=== PATIENT | female | born 1945 | race Caucasian/White ===

== ENCOUNTER → 2016-03-16 | Outpatient (CLI) | payer OTHER ==
[2016-03-16 10:42] LABS: Basophils # (auto) 0 uL; Basophils % (auto) 0.6 % (0.0-2.0); Eosinophils # (auto) 0.2 uL; Hematocrit 43.7 % (36.0-46.0); Hemoglobin 14.1 g/dL (12.2-16.2); Lymphocytes % (auto) 19.4 % (10.0-50.0); Mean Corpuscular Hemoglobin 27.1 pg (28.0-32.0); Mean Corpuscular Hgb Conc. 32.2 g/dL (32.0-36.0); Mean Corpuscular Volume 84.1 fL (80.0-100.0); Monocytes # (auto) 0.4 uL; Monocytes % (auto) 8.3 % (0.0-12.0); Neutrophils # (auto) 3.5 uL; Neutrophils % (auto) 67.7 % (37.0-80.0); Platelet Count (auto) 156 10^3/uL (140-450); Red Cell Distribution Width 14.8 % (11.6-16.0); White Blood Cell 5.1 10^3/uL (4.4-10.8)
[2016-03-16 10:56] LABS: Urine Bilirubin Negative (Negative); Urine Blood Negative /uL (Negative); Urine Color Yellow (Yellow); Urine Glucose Normal (Normal); Urine Ketone Negative (Negative); Urine Mucus FEW (None Seen); Urine Nitrite Negative (Negative); Urine RBC 1 /hpf (0 - 4); Urine Squamous Epithelial Cell FEW /hpf (<5); Urine Urobilinogen Normal (Negative); Urine pH 5.5 (5.0-8.0)
[2016-03-16 11:08] LABS: Albumin 3.9 g/dL (3.4-5.0); Bilirubin, Total 0.5 mg/dL (0.2-1.0); Calcium 9.3 mg/dL (8.5-10.1); Potassium 3.7 mmol/L (3.5-5.1)
== END | disposition home or self-care (01) ==
LOC: LAB 09:28
PROVIDERS: ATTEND Internal Medicine
DX: E55.9 Vitamin D deficiency, unspecified (principal); Z00.00 Encounter for general adult medical examination without abnormal findings
CPT/HCPCS: 36415; 80053; 80061; 81001; 82306; 84443; 85025

== ENCOUNTER → 2016-05-05 | Outpatient (CLI) | payer OTHER ==
[2016-05-05 11:17] LABS: Urine Bilirubin Negative (Negative); Urine Blood Negative /uL (Negative); Urine Color Yellow (Yellow); Urine Glucose Normal (Normal); Urine Ketone Negative (Negative); Urine Mucus FEW (None Seen); Urine Nitrite Negative (Negative); Urine RBC 2 /hpf (0 - 4); Urine Squamous Epithelial Cell FEW /hpf (<5)
== END | disposition home or self-care (01) ==
LOC: LAB 10:39
PROVIDERS: ATTEND Internal Medicine
DX: N39.0 Urinary tract infection, site not specified (principal)
CPT/HCPCS: 81001

== ENCOUNTER → 2017-02-14 | Outpatient (CLI) | payer OTHER ==
[~2017-02-14] MED LIST: AMPH10TA21 PO; BUSP15TA60 PO; LEVO88TA4 PO; PANT40TA2 PO; SERT-160 PO
[2017-02-14 10:19] LABS: Urine Bilirubin Negative (Negative); Urine Blood Negative /uL (Negative); Urine Color Yellow (Yellow); Urine Glucose Normal (Normal); Urine Ketone Negative (Negative); Urine Mucus FEW (None Seen); Urine Nitrite Negative (Negative); Urine RBC <1 /hpf (0 - 4); Urine Squamous Epithelial Cell FEW /hpf (<5); Urine Urobilinogen Normal (Negative); Urine pH 5.5 (5.0-8.0)
[2017-02-14 10:47] LABS: Basophils # (auto) 0 uL; Basophils % (auto) 1.1 % (0.0-2.0); Eosinophils # (auto) 0.2 uL; Eosinophils % (auto) 4.4 % (0.0-7.0); Hematocrit 39.7 % (36.0-46.0); Hemoglobin 13.4 g/dL (12.2-16.2); Lymphocytes % (auto) 23.8 % (10.0-50.0); Mean Corpuscular Hemoglobin 28.1 pg (28.0-32.0); Mean Corpuscular Hgb Conc. 33.8 g/dL (32.0-36.0); Mean Corpuscular Volume 83.1 fL (80.0-100.0); Mean Platelet Volume 8.5 fL (6.9-10.8); Monocytes # (auto) 0.3 uL; Monocytes % (auto) 8.6 % (0.0-12.0); Neutrophils # (auto) 2.5 uL; Neutrophils % (auto) 62.1 % (37.0-80.0); Nucleated Red Blood Cells % 0.1 %; Platelet Count (auto) 119 10^3/uL (140-450); Red Cell Distribution Width 14.8 % (11.8-14.3); White Blood Cell 4.1 10^3/uL (4.4-10.8)
[2017-02-14 10:50] LABS: Albumin 3.8 g/dL (3.4-5.0); BUN/Creatinine Ratio 33.9; Bilirubin, Total 0.4 mg/dL (0.2-1.0); Calcium 9.1 mg/dL (8.5-10.1); Potassium 3.8 mmol/L (3.5-5.1); Total Protein 7.8 g/dL (6.4-8.2)
== END | disposition home or self-care (01) ==
LOC: LAB 09:28
PROVIDERS: ATTEND Nurse Practitioner
DX: K52.9 Noninfective gastroenteritis and colitis, unspecified (principal); R79.89 Other specified abnormal findings of blood chemistry
CPT/HCPCS: 36415; 80053; 80061; 81001; 82306; 83036; 85025

== ENCOUNTER 2017-02-16 06:27 | Day surgery (SDC) | payer OTHER ==
[2017-02-14 10:13] LABS: Basophils # (auto) 0 uL; Basophils % (auto) 1.1 % (0.0-2.0); Eosinophils # (auto) 0.2 uL; Eosinophils % (auto) 4.6 % (0.0-7.0); Hematocrit 40.8 % (36.0-46.0); Hemoglobin 13.6 g/dL (12.2-16.2); Mean Corpuscular Hemoglobin 27.6 pg (28.0-32.0); Mean Corpuscular Hgb Conc. 33.2 g/dL (32.0-36.0); Mean Corpuscular Volume 83.1 fL (80.0-100.0); Mean Platelet Volume 8.2 fL (6.9-10.8); Monocytes # (auto) 0.3 uL; Neutrophils # (auto) 2.5 uL; Neutrophils % (auto) 62.3 % (37.0-80.0); Platelet Count (auto) 121 10^3/uL (140-450); Red Cell Distribution Width 14.6 % (11.8-14.3); White Blood Cell 4.1 10^3/uL (4.4-10.8)
[2017-02-14 10:19] LABS: Urine Bilirubin Negative (Negative); Urine Blood Negative /uL (Negative); Urine Color Yellow (Yellow); Urine Glucose Normal (Normal); Urine Ketone Negative (Negative); Urine Mucus FEW (None Seen); Urine Nitrite Negative (Negative); Urine RBC <1 /hpf (0 - 4); Urine Urobilinogen Normal (Negative); Urine pH 5.5 (5.0-8.0)
[2017-02-14 10:38] LABS: INR 0.93 (0.9-1.15); Partial Thromboplastin Time 24.5 sec (22.64-33.71); Prothrombin Time 10.1 sec (9.37-12.3)
[2017-02-14 10:45] LABS: Albumin 3.7 g/dL (3.4-5.0); BUN/Creatinine Ratio 33.3; Bilirubin, Total 0.4 mg/dL (0.2-1.0); Potassium 3.8 mmol/L (3.5-5.1); Total Protein 7.8 g/dL (6.4-8.2)
[~2017-02-16] VITALS: Ht 165.1 cm; Wt 87.5 kg
[2017-02-16] MEDS ORDERED: ceFAZolin 1GM/50ML 50 ML IV ONE (06:39)
[2017-02-16] MEDS ORDERED: ceFAZolin 1GM VL ONE (06:47)
[2017-02-16] MEDS ORDERED: NEOMYCIN-BACITRACIN-POLYM 15GM TOP OINT TOP ONE (06:47)
[2017-02-16] MEDS ORDERED: BUPIVACAINE 0.75% INJ 10ML MPV SDV IJ ONE (06:47)
[2017-02-16] MEDS ORDERED: fentaNYL CITRATE 100 MCG/2 ML VL ONE (07:34)
[2017-02-16] MEDS ORDERED: MEPERIDINE HCL (50 MG/ML) 1 ML VIAL ONE (07:34)
[2017-02-16] MEDS ORDERED: MIDAZOLAM HCL 1MG/1ML-2 ML VIAL ONE (07:34)
[2017-02-16] MEDS ORDERED: DEXAMETHASONE SOD PHOS 10MG/1ML VIAL INJ ONE (07:50)
[2017-02-16] MEDS ORDERED: KETOROLAC TROMETH 30 MG/ML 1ML VIAL ONE (07:50)
[2017-02-16] MEDS ORDERED: PROPOFOL 10 MG/ML 20 ML IV ONE (07:50)
[2017-02-16] MEDS ORDERED: LABETALOL HCL 5 MG/ML 4ML SYRINGE IV PRN (08:00)
[2017-02-16] MEDS ORDERED: HYDROmorphone HCL 2 MG/ML VL IV PRN (08:00)
[2017-02-16] MEDS ORDERED: MIDAZOLAM HCL 1MG/1ML-2 ML VIAL IV PRN (08:00)
[2017-02-16] MEDS ORDERED: MORPHINE SULF INJ 2 MG/ML SYRINGE 1ML IV PRN (08:00)
[2017-02-16] MEDS ORDERED: KETOROLAC TROMETH 30 MG/ML 1ML VIAL IV ONE (08:00)
[2017-02-16] MEDS ORDERED: ONDANSETRON HCL 4 MG/2 ML VIAL IV ONE (08:00)
[2017-02-16] MEDS ORDERED: ePHEDrine SULFATE 50 MG/ML AMP IV PRN (08:00)
[2017-02-16 09:44] VITALS: BP 137/92
== END 2017-02-16 09:14 | disposition home or self-care (01) ==
LOC: SUR 06:27
PROVIDERS: ATTEND Podiatrist Foot & Ankle Surgery
DX: M21.622 Bunionette of left foot (principal); M24.675 Ankylosis, left foot; D69.6 Thrombocytopenia, unspecified; E66.9 Obesity, unspecified; Z90.49 Acquired absence of other specified parts of digestive tract; Z90.710 Acquired absence of both cervix and uterus; K21.9 Gastro-esophageal reflux disease without esophagitis; E03.9 Hypothyroidism, unspecified; Z68.34 Body mass index [BMI] 34.0-34.9, adult; I25.10 Atherosclerotic heart disease of native coronary artery without angina pectoris; F32.9 Major depressive disorder, single episode, unspecified
CPT/HCPCS: 14040; 28110; 36415; 80053; 81001; 85025; 85610; 85730; J0690; J1100; J1885; J2175; J2250; J2704; J3010; J3490; L3260

== ENCOUNTER → 2017-06-22 | Outpatient (CLI) | payer OTHER ==
[2017-06-22 09:05] LABS: Basophils # (auto) 0 uL; Basophils % (auto) 1.1 % (0.0-2.0); Eosinophils # (auto) 0.3 uL; Eosinophils % (auto) 6.8 % (0.0-7.0); Hematocrit 40.7 % (36.0-46.0); Hemoglobin 13.5 g/dL (12.2-16.2); Lymphocytes # (auto) 0.9 uL; Lymphocytes % (auto) 23.9 % (10.0-50.0); Mean Corpuscular Hemoglobin 27.5 pg (28.0-32.0); Mean Corpuscular Hgb Conc. 33.2 g/dL (32.0-36.0); Mean Corpuscular Volume 82.6 fL (80.0-100.0); Monocytes # (auto) 0.3 uL; Monocytes % (auto) 7.4 % (0.0-12.0); Neutrophils # (auto) 2.3 uL; Neutrophils % (auto) 60.8 % (37.0-80.0); Platelet Count (auto) 129 10^3/uL (140-450); Red Blood Cells 4.92 10^6/uL (4.0-5.20); Red Cell Distribution Width 14.3 % (11.8-14.3); White Blood Cell 3.8 10^3/uL (4.4-10.8)
[2017-06-22 09:20] LABS: Urine Blood Negative /uL (Negative); Urine Mucus FEW (None Seen); Urine WBC <1 /hpf (0 - 5)
[2017-06-22 09:24] LABS: Urine Bacteria None Seen /hpf (None Seen)
[2017-06-22 09:41] LABS: Albumin 3.6 g/dL (3.4-5.0); BUN/Creatinine Ratio 23.6; Bilirubin, Total 0.6 mg/dL (0.2-1.0); Potassium 4.1 mmol/L (3.5-5.1); Total Protein 7.6 g/dL (6.4-8.2)
== END | disposition home or self-care (01) ==
LOC: LAB 08:42
PROVIDERS: ATTEND Nurse Practitioner
DX: E78.5 Hyperlipidemia, unspecified (principal)
CPT/HCPCS: 36415; 80053; 80061; 81001; 83036; 84443; 85025

== ENCOUNTER → 2017-11-24 | Outpatient (CLI) | payer OTHER ==
[2017-11-24 10:15] LABS: Basophils # (auto) 0 uL; Basophils % (auto) 1.2 % (0.0-2.0); Eosinophils # (auto) 0.2 uL; Eosinophils % (auto) 5.7 % (0.0-7.0); Hematocrit 41.2 % (36.0-46.0); Hemoglobin 14.1 g/dL (12.2-16.2); Lymphocytes # (auto) 0.8 uL; Lymphocytes % (auto) 20.8 % (10.0-50.0); Mean Corpuscular Hemoglobin 27.9 pg (28.0-32.0); Mean Corpuscular Hgb Conc. 34.2 g/dL (32.0-36.0); Mean Corpuscular Volume 81.8 fL (80.0-100.0); Monocytes # (auto) 0.3 uL; Monocytes % (auto) 7.7 % (0.0-12.0); Neutrophils # (auto) 2.6 uL; Neutrophils % (auto) 64.6 % (37.0-80.0); Nucleated Red Blood Cells % 0.1 %; Platelet Count (auto) 104 10^3/uL (140-450); Red Blood Cells 5.03 10^6/uL (4.0-5.20); Red Cell Distribution Width 15.2 % (11.8-14.3)
[2017-11-24 11:19] LABS: Albumin 3.7 g/dL (3.4-5.0); BUN/Creatinine Ratio 29.4; Bilirubin, Total 0.5 mg/dL (0.2-1.0); Calcium 8.9 mg/dL (8.5-10.1); Total Protein 7.7 g/dL (6.4-8.2)
== END | disposition home or self-care (01) ==
LOC: LAB 09:31
PROVIDERS: ATTEND Nurse Practitioner
DX: E78.5 Hyperlipidemia, unspecified (principal)
CPT/HCPCS: 36415; 80053; 80061; 83036; 85025

== ENCOUNTER → 2018-02-10 | Outpatient (CLI) | payer OTHER ==
[2018-02-10 09:48] LABS: Basophils # (auto) 0.1 uL; Basophils % (auto) 1.4 % (0.0-2.0); Eosinophils # (auto) 0.2 uL; Eosinophils % (auto) 4.2 % (0.0-7.0); Hematocrit 39.1 % (36.0-46.0); Hemoglobin 13.3 g/dL (12.2-16.2); Lymphocytes # (auto) 0.8 uL; Lymphocytes % (auto) 20.3 % (10.0-50.0); Mean Corpuscular Hgb Conc. 34.1 g/dL (32.0-36.0); Mean Corpuscular Volume 82.1 fL (80.0-100.0); Monocytes # (auto) 0.3 uL; Monocytes % (auto) 7.8 % (0.0-12.0); Neutrophils # (auto) 2.5 uL; Neutrophils % (auto) 66.3 % (37.0-80.0); Nucleated Red Blood Cells % 0.1 %; Platelet Count (auto) 119 10^3/uL (140-450); Red Blood Cells 4.77 10^6/uL (4.0-5.20); Red Cell Distribution Width 14.2 % (11.8-14.3); White Blood Cell 3.7 10^3/uL (4.4-10.8)
[2018-02-10 10:51] LABS: Albumin 3.6 g/dL (3.4-5.0); Calcium 8.9 mg/dL (8.5-10.1); Potassium 3.8 mmol/L (3.5-5.1)
[2018-02-10 10:56] LABS: BUN/Creatinine Ratio 30.4; Bilirubin, Total 0.6 mg/dL (0.2-1.0); Total Protein 7.2 g/dL (6.4-8.2)
== END | disposition home or self-care (01) ==
LOC: LAB 09:24
PROVIDERS: ATTEND Nurse Practitioner
DX: E78.5 Hyperlipidemia, unspecified (principal)
CPT/HCPCS: 36415; 80053; 80061; 85025

== ENCOUNTER → 2018-07-06 | Outpatient (CLI) | payer OTHER | END | disposition home or self-care (01) | LOC: LAB 14:26 | PROVIDERS: ATTEND Nurse Practitioner | DX: Z12.11 Encounter for screening for malignant neoplasm of colon (principal) | CPT/HCPCS: 82270 ==

== ENCOUNTER → 2018-08-10 | Outpatient (CLI) | payer OTHER ==
[2018-08-10 10:03] LABS: Urine Bacteria NONE SEEN /hpf (None Seen); Urine Blood Negative /uL (Negative); Urine Mucus FEW (None Seen); Urine Specific Gravity 1.025 (1.001-1.035); Urine WBC 3 /hpf (0 - 5)
[2018-08-10 10:12] LABS: Basophils # (auto) 0.1 uL; Basophils % (auto) 1.4 % (0.0-2.0); Eosinophils # (auto) 0.5 uL; Eosinophils % (auto) 13.5 % (0.0-7.0); Hematocrit 39.2 % (36.0-46.0); Lymphocytes # (auto) 0.9 uL; Lymphocytes % (auto) 23.9 % (10.0-50.0); Mean Corpuscular Hemoglobin 27.9 pg (28.0-32.0); Mean Corpuscular Hgb Conc. 33.2 g/dL (32.0-36.0); Monocytes # (auto) 0.3 uL; Monocytes % (auto) 8.2 % (0.0-12.0); Neutrophils # (auto) 2.1 uL; Nucleated Red Blood Cells % 0.1 %; Platelet Count (auto) 111 10^3/uL (140-450); Red Blood Cells 4.67 10^6/uL (4.0-5.20); Red Cell Distribution Width 14.8 % (11.8-14.3); White Blood Cell 3.9 10^3/uL (4.4-10.8)
[2018-08-10 10:40] LABS: Albumin 3.6 g/dL (3.4-5.0); BUN/Creatinine Ratio 30.9; Bilirubin, Total 0.5 mg/dL (0.2-1.0); Calcium 8.6 mg/dL (8.5-10.1); Total Protein 7.6 g/dL (6.4-8.2); Uric Acid 3.5 mg/dL (2.6-6.0)
[2018-08-10 10:48] LABS: Folate (Folic Acid) 14.35 ng/mL (5.38-24)
== END | disposition home or self-care (01) ==
LOC: LAB 09:27
PROVIDERS: ATTEND Nurse Practitioner
DX: E78.5 Hyperlipidemia, unspecified (principal)
CPT/HCPCS: 36415; 80053; 80061; 81001; 82306; 82607; 82746; 83036; 84443; 84550; 85025

== ENCOUNTER → 2019-03-21 | Outpatient (CLI) | payer OTHER ==
[~2019-03-21] MED LIST changes: +AMPH10TA2 PO; -AMPH10TA21 PO
[2019-03-21 12:04] LABS: Basophils # (auto) 0 uL; Basophils % (auto) 1.3 % (0.0-2.0); Eosinophils # (auto) 0.1 uL; Eosinophils % (auto) 4.3 % (0.0-7.0); Hematocrit 37.7 % (36.0-46.0); Hemoglobin 12.8 g/dL (12.2-16.2); Lymphocytes # (auto) 0.6 uL; Lymphocytes % (auto) 19.6 % (10.0-50.0); Mean Corpuscular Hemoglobin 28.6 pg (28.0-32.0); Mean Corpuscular Hgb Conc. 33.9 g/dL (32.0-36.0); Mean Corpuscular Volume 84.2 fL (80.0-100.0); Monocytes # (auto) 0.2 uL; Monocytes % (auto) 5.7 % (0.0-12.0); Neutrophils # (auto) 2.3 uL; Neutrophils % (auto) 69.1 % (37.0-80.0); Nucleated Red Blood Cells % 0.1 %; Platelet Count (auto) 109 10^3/uL (140-450); Red Blood Cells 4.48 10^6/uL (4.0-5.20); White Blood Cell 3.3 10^3/uL (4.4-10.8)
[2019-03-21 12:19] LABS: Potassium 3.7 mmol/L (3.5-5.1)
[2019-03-21 12:22] LABS: Urine Bacteria NONE SEEN /hpf (None Seen); Urine Blood Negative /uL (Negative); Urine Mucus FEW (None Seen); Urine Specific Gravity 1.023 (1.001-1.035); Urine WBC 1 /hpf (0 - 5)
[2019-03-21 12:26] LABS: Albumin 3.4 g/dL (3.4-5.0); BUN/Creatinine Ratio 22.6; Bilirubin, Total 0.4 mg/dL (0.2-1.0); Calcium 8.8 mg/dL (8.5-10.1); Total Protein 7.4 g/dL (6.4-8.2)
== END | disposition home or self-care (01) ==
LOC: LAB 11:27
PROVIDERS: ATTEND Nurse Practitioner
DX: E78.5 Hyperlipidemia, unspecified (principal)
CPT/HCPCS: 36415; 80053; 80061; 81001; 83036; 84443; 85025

== ENCOUNTER → 2019-11-21 | Outpatient (CLI) | payer OTHER ==
[2019-11-21 13:01] LABS: Basophils # (auto) 0.1 10 ^3/uL (0-0.2); Basophils % (auto) 1.2 % (0.0-2.0); Eosinophils # (auto) 0.2 10 ^3/uL (0-0.8); Eosinophils % (auto) 4.2 % (0.0-7.0); Hematocrit 34.9 % (36.0-46.0); Hemoglobin 11.1 g/dL (12.2-16.2); Lymphocytes # (auto) 0.8 10 ^3/uL (0.4-5.4); Mean Corpuscular Hemoglobin 25.3 pg (28.0-32.0); Mean Corpuscular Hgb Conc. 31.8 g/dL (32.0-36.0); Mean Corpuscular Volume 79.6 fL (80.0-100.0); Monocytes # (auto) 0.4 10 ^3/uL (0-1.3); Monocytes % (auto) 8.4 % (0.0-12.0); Neutrophils # (auto) 2.9 10 ^3/uL (1.6-8.6); Neutrophils % (auto) 67.2 % (37.0-80.0); Nucleated Red Blood Cells % 0.1 %; Platelet Count (auto) 130 10^3/uL (140-450); Red Blood Cells 4.39 10^6/uL (4.0-5.20); Red Cell Distribution Width 14.9 % (11.8-14.3); White Blood Cell 4.3 10^3/uL (4.4-10.8)
== END | disposition home or self-care (01) ==
LOC: LAB 12:25
PROVIDERS: ATTEND Internal Medicine Pulmonary Disease
DX: R06.02 Shortness of breath (principal)
CPT/HCPCS: 36415; 82785; 85025

== ENCOUNTER → 2019-12-26 | Outpatient (CLI) | payer OTHER ==
[2019-12-26 14:33] LABS: Basophils # (auto) 0 10 ^3/uL (0-0.2); Eosinophils # (auto) 0.3 10 ^3/uL (0-0.8); Lymphocytes # (auto) 0.7 10 ^3/uL (0.4-5.4); Monocytes # (auto) 0.3 10 ^3/uL (0-1.3); White Blood Cell 4.3 10^3/uL (4.4-10.8)
[2019-12-26 14:35] LABS: Basophils % (auto) 0.9 % (0.0-2.0); Eosinophils % (auto) 6.7 % (0.0-7.0); Hematocrit 33.1 % (36.0-46.0); Hemoglobin 10.8 g/dL (12.2-16.2); Lymphocytes % (auto) 15.5 % (10.0-50.0); Mean Corpuscular Hemoglobin 25.5 pg (28.0-32.0); Mean Corpuscular Hgb Conc. 32.7 g/dL (32.0-36.0); Mean Corpuscular Volume 78.1 fL (80.0-100.0); Monocytes % (auto) 6.7 % (0.0-12.0); Neutrophils % (auto) 70.2 % (37.0-80.0); Nucleated Red Blood Cells % 0.1 %; Platelet Count (auto) 139 10^3/uL (140-450); Red Blood Cells 4.24 10^6/uL (4.0-5.20); Red Cell Distribution Width 14.6 % (11.8-14.3)
[2019-12-26 15:02] LABS: Albumin 3.6 g/dL (3.4-5.0); Calcium 8.8 mg/dL (8.5-10.1); Potassium 3.9 mmol/L (3.5-5.1)
[2019-12-26 15:05] LABS: BUN/Creatinine Ratio 28.9; Bilirubin, Total 0.3 mg/dL (0.2-1.0); Total Protein 7.5 g/dL (6.4-8.2)
== END | disposition home or self-care (01) ==
LOC: LAB 14:08
PROVIDERS: ATTEND Student in an Organized Health Care Education/Training Program
DX: I10 Essential (primary) hypertension (principal); K21.9 Gastro-esophageal reflux disease without esophagitis; E03.9 Hypothyroidism, unspecified
CPT/HCPCS: 36415; 80053; 84443; 85025

== ENCOUNTER → 2020-01-16 | Outpatient (CLI) | payer OTHER | END | disposition home or self-care (01) | LOC: LAB 13:23 | PROVIDERS: ATTEND Student in an Organized Health Care Education/Training Program | DX: K21.9 Gastro-esophageal reflux disease without esophagitis (principal); I10 Essential (primary) hypertension; E03.9 Hypothyroidism, unspecified | CPT/HCPCS: 82274 ==

== ENCOUNTER → 2020-03-24 | Outpatient (CLI) | payer OTHER ==
[~2020-03-24] MED LIST changes: +BACL10TA PO; +BACL20TA PO; +DICL1GEL72 EX; +DICL50TA4 PO; +HYDR-3682 PO
== END | disposition home or self-care (01) ==
LOC: LAB 10:45
PROVIDERS: ATTEND Student in an Organized Health Care Education/Training Program
DX: E03.9 Hypothyroidism, unspecified (principal); R73.03 Prediabetes
CPT/HCPCS: 36415; 83036; 84439; 84443

== ENCOUNTER → 2020-06-16 | Outpatient (CLI) | payer OTHER ==
[~2020-06-16] MED LIST changes: -BACL10TA PO; -BACL20TA PO; -DICL1GEL72 EX; -DICL50TA4 PO; -HYDR-3682 PO
[2020-06-16 13:24] LABS: Urine Bacteria NONE SEEN /hpf (None Seen); Urine Blood Negative /uL (Negative); Urine Specific Gravity 1.022 (1.001-1.035); Urine WBC <1 /hpf (0 - 5)
[2020-06-16 13:26] LABS: Basophils # (auto) 0.1 10 ^3/uL (0-0.2); Eosinophils # (auto) 0.3 10 ^3/uL (0-0.8); Lymphocytes # (auto) 0.8 10 ^3/uL (0.4-5.4); Mean Corpuscular Hemoglobin 20.5 pg (28.0-32.0); Monocytes # (auto) 0.4 10 ^3/uL (0-1.3); Neutrophils # (auto) 3.1 10 ^3/uL (1.6-8.6); Platelet Count (auto) 121 10^3/uL (140-450); White Blood Cell 4.7 10^3/uL (4.4-10.8)
[2020-06-16 13:28] LABS: Basophils % (auto) 1.4 % (0.0-2.0); Eosinophils % (auto) 6.8 % (0.0-7.0); Hematocrit 27.8 % (36.0-46.0); Hemoglobin 8.8 g/dL (12.2-16.2); Lymphocytes % (auto) 17.5 % (10.0-50.0); Mean Corpuscular Hgb Conc. 31.6 g/dL (32.0-36.0); Monocytes % (auto) 8.5 % (0.0-12.0); Neutrophils % (auto) 65.8 % (37.0-80.0); Red Blood Cells 4.28 10^6/uL (4.0-5.20); Red Cell Distribution Width 18.5 % (11.8-14.3)
[2020-06-16 13:45] LABS: INR 1.01 (0.9-1.15); Partial Thromboplastin Time 24.4 sec (23.0-31.2)
[2020-06-16 14:17] LABS: Albumin 3.6 g/dL (3.4-5.0); Potassium 3.9 mmol/L (3.5-5.1)
[2020-06-16 14:23] LABS: Bilirubin, Total 0.3 mg/dL (0.2-1.0); Total Protein 7.8 g/dL (6.4-8.2)
== END | disposition home or self-care (01) ==
LOC: LAB 12:52
PROVIDERS: ATTEND Nurse Practitioner
DX: Z01.818 Encounter for other preprocedural examination (principal)
CPT/HCPCS: 36415; 80053; 81001; 85025; 85610; 85730

== ENCOUNTER 2020-08-12 08:24 | Day surgery (SDC) | payer OTHER ==
[2020-08-08 14:04] LABS: Basophils # (auto) 0.1 10 ^3/uL (0-0.2); Eosinophils # (auto) 0.3 10 ^3/uL (0-0.8); Hemoglobin 8.2 g/dL (12.2-16.2); Lymphocytes # (auto) 0.9 10 ^3/uL (0.4-5.4); Neutrophils # (auto) 2.9 10 ^3/uL (1.6-8.6); Nucleated Red Blood Cells % 0.1 %; White Blood Cell 4.6 10^3/uL (4.4-10.8)
[2020-08-08 14:06] LABS: Basophils % (auto) 1.5 % (0.0-2.0); Eosinophils % (auto) 6.2 % (0.0-7.0); Hematocrit 25.6 % (36.0-46.0); Lymphocytes % (auto) 19.5 % (10.0-50.0); Mean Corpuscular Hemoglobin 19.8 pg (28.0-32.0); Mean Corpuscular Hgb Conc. 31.9 g/dL (32.0-36.0); Mean Corpuscular Volume 62.1 fL (80.0-100.0); Monocytes # (auto) 0.4 10 ^3/uL (0-1.3); Monocytes % (auto) 9.6 % (0.0-12.0); Neutrophils % (auto) 63.2 % (37.0-80.0); Platelet Count (auto) 126 10^3/uL (140-450); Red Blood Cells 4.12 10^6/uL (4.0-5.20); Red Cell Distribution Width 17.9 % (11.8-14.3)
[2020-08-08 14:17] LABS: INR 1.01 (0.9-1.15); Partial Thromboplastin Time 23.6 sec (23.0-31.2)
[2020-08-08 14:38] LABS: Potassium 4.1 mmol/L (3.5-5.1)
[2020-08-08 14:45] LABS: Albumin 3.5 g/dL (3.4-5.0); BUN/Creatinine Ratio 26.9; Bilirubin, Total 0.3 mg/dL (0.2-1.0); Calcium 8.8 mg/dL (8.5-10.1)
[~2020-08-12] VITALS: Ht 167.6 cm; Wt 91.6 kg
[~2020-08-12 08:24] MED LIST changes: -AMPH10TA2 PO
[2020-08-12] MEDS ORDERED: SODIUM CHLORIDE LOCK 10 ML ONE (08:39)
[2020-08-12] MEDS ORDERED: LIDOCAINE VISCOUS 2% 15ML UD ONE (08:39)
[2020-08-12] MEDS ORDERED: EPINEPHrine HCL 1 MG/10 ML SYRG ONE (08:39)
[2020-08-12] MEDS ORDERED: diphenhdrAMINE HCL 50 MG/1 ML VL ONE (08:40)
[2020-08-12] MEDS: fentaNYL CITRATE 100 MCG/2 ML VL ONE ×4 (10:27→10:47)
[2020-08-12] MEDS: MIDAZOLAM HCL 5 MG/ML-1ML VIAL ONE ×4 (10:27→10:44)
[2020-08-12 11:30] VITALS: BP 122/59
== END 2020-08-12 12:10 | disposition home or self-care (01) ==
LOC: GI 08:24
PROVIDERS: ATTEND Internal Medicine Gastroenterology
DX: K62.5 Hemorrhage of anus and rectum (principal); K31.9 Disease of stomach and duodenum, unspecified; R68.89 Other general symptoms and signs; K44.9 Diaphragmatic hernia without obstruction or gangrene; K21.9 Gastro-esophageal reflux disease without esophagitis; F98.8 Other specified behavioral and emotional disorders with onset usually occurring in childhood and adolescence; D64.9 Anemia, unspecified; H26.8 Other specified cataract; K63.5 Polyp of colon; K63.89 Other specified diseases of intestine; Z20.822 Contact with and (suspected) exposure to COVID-19; Z79.899 Other long term (current) drug therapy; Z98.890 Other specified postprocedural states; Z68.32 Body mass index [BMI] 32.0-32.9, adult; Z80.0 Family history of malignant neoplasm of digestive organs
CPT/HCPCS: 36415; 43239; 45385; 80053; 85025; 85610; 85730; J1200; J2250; J3010; J7030; U0003; 99152; 99153

== ENCOUNTER → 2020-10-06 | Outpatient (CLI) | payer OTHER ==
[2020-10-06 10:59] LABS: Basophils # (auto) 0.1 10 ^3/uL (0-0.2); Eosinophils # (auto) 0.2 10 ^3/uL (0-0.8); Lymphocytes # (auto) 0.7 10 ^3/uL (0.4-5.4); Monocytes # (auto) 0.3 10 ^3/uL (0-1.3); Neutrophils # (auto) 2.4 10 ^3/uL (1.6-8.6); Red Blood Cells 4.01 10^6/uL (4.0-5.20); White Blood Cell 3.7 10^3/uL (4.4-10.8)
[2020-10-06 11:01] LABS: Basophils % (auto) 1.8 % (0.0-2.0); Eosinophils % (auto) 5.9 % (0.0-7.0); Hematocrit 24.5 % (36.0-46.0); Hemoglobin 7.3 g/dL (12.2-16.2); Lymphocytes % (auto) 20.1 % (10.0-50.0); Mean Corpuscular Hemoglobin 18.1 pg (28.0-32.0); Mean Corpuscular Hgb Conc. 29.7 g/dL (32.0-36.0); Monocytes % (auto) 8.2 % (0.0-12.0); Nucleated Red Blood Cells % 0.2 %; Red Cell Distribution Width 19.5 % (11.8-14.3)
[2020-10-06 11:07] LABS: Urine Bacteria NONE SEEN /hpf (None Seen); Urine Blood Negative /uL (Negative); Urine Mucus FEW (None Seen); Urine Specific Gravity 1.022 (1.001-1.035); Urine WBC 4 /hpf (0 - 5)
[2020-10-06 11:22] LABS: Partial Thromboplastin Time 22.7 sec (23.0-31.2)
[2020-10-06 11:54] LABS: Potassium 3.9 mmol/L (3.5-5.1)
[2020-10-06 12:08] LABS: Albumin 3.2 g/dL (3.4-5.0); BUN/Creatinine Ratio 16.7; Bilirubin, Total 0.4 mg/dL (0.2-1.0); Calcium 8.7 mg/dL (8.5-10.1); Total Protein 7.8 g/dL (6.4-8.2)
== END | disposition home or self-care (01) ==
LOC: LAB 10:40
PROVIDERS: ATTEND Specialist
DX: Z01.812 Encounter for preprocedural laboratory examination (principal); H25.11 Age-related nuclear cataract, right eye; D68.9 Coagulation defect, unspecified; Z79.01 Long term (current) use of anticoagulants
CPT/HCPCS: 36415; 80053; 81001; 85025; 85610; 85730

== ENCOUNTER 2020-11-25 12:35 | Emergency (ER) | payer OTHER ==
[~2020-11-25] VITALS: Ht 167.6 cm; Wt 90.7 kg
[~2020-11-25 12:35] MED LIST changes: +BACL20TA PO; +DICL1GEL72 EX; +DICL50TA4 PO; +HYDR-3682 PO
[2020-11-25] MEDS ORDERED: SODIUM CHLORIDE 0.9% 1,000 ML IV ONE (13:00)
[2020-11-25 13:59] LABS: Basophils # (auto) 0.1 10 ^3/uL (0-0.2); Eosinophils # (auto) 0.2 10 ^3/uL (0-0.8); Lymphocytes # (auto) 0.9 10 ^3/uL (0.4-5.4); Monocytes # (auto) 0.5 10 ^3/uL (0-1.3); Nucleated Red Blood Cells % 0.1 %
[2020-11-25 14:14] LABS: INR 1.03 (0.9-1.15); Partial Thromboplastin Time 21.9 sec (23.6-33.0)
[2020-11-25 14:22] LABS: Basophils % (auto) 1.3 % (0.0-2.0); Eosinophils % (auto) 3.5 % (0.0-7.0); Hematocrit 23.8 % (36.0-46.0); Lymphocytes % (auto) 17.9 % (10.0-50.0); Mean Corpuscular Hemoglobin 16.7 pg (28.0-32.0); Mean Corpuscular Hgb Conc. 28.9 g/dL (32.0-36.0); Mean Corpuscular Volume 57.8 fL (80.0-100.0); Monocytes % (auto) 9.6 % (0.0-12.0); Neutrophils # (auto) 3.5 10 ^3/uL (1.6-8.6); Neutrophils % (auto) 67.7 % (37.0-80.0); Red Blood Cells 4.11 10^6/uL (4.0-5.20); Red Cell Distribution Width 19.1 % (11.8-14.3); White Blood Cell 5.2 10^3/uL (4.4-10.8)
[2020-11-25 14:27] LABS: Hemoglobin 6.9 g/dL (12.2-16.2)
[2020-11-25 14:32] LABS: Albumin 3.7 g/dL (3.4-5.0); Chloride 107 mmol/L (98-107); Potassium 3.7 mmol/L (3.5-5.1); Sodium 141 mmol/L (136-145)
[2020-11-25 14:50] LABS: Alanine Aminotransferase 30 U/L (13-56); Alkaline Phosphatase 97 U/L (45-117); Anion Gap 9 (5-15); Aspartate Aminotransferase 27 U/L (15-37); Bilirubin, Total 0.4 mg/dL (0.2-1.0); Blood Urea Nitrogen 17 mg/dL (7-18); Calcium 9.1 mg/dL (8.5-10.1); Carbon Dioxide 25 mmol/L (21-32); GFR African American 65 mL/min; GFR Non-African American 54 mL/min; Glucose 93 mg/dL (74-106); Total Protein 8.3 g/dL (6.4-8.2)
[2020-11-25 18:33] VITALS: BP 105/42
[2020-11-25 19:48] VITALS: BP 124/87
[2020-11-25 20:08] VITALS: BP 130/77
[2020-11-25 20:28] VITALS: BP 136/86
[2020-11-25 20:43] VITALS: BP 138/80
[2020-11-25 22:28] VITALS: BP 134/86
== END 2020-11-25 23:18 | disposition home or self-care (01) ==
LOC: ER 12:35
DX: D64.9 Anemia, unspecified (principal); I10 Essential (primary) hypertension; Z90.89 Acquired absence of other organs; Z79.899 Other long term (current) drug therapy
CPT/HCPCS: 36415; 36430; 71045; 80053; 84484; 85025; 85610; 85730; 86850; 86900; 86901; 86920; 96360; 96361; 99285; P9016

== ENCOUNTER 2020-11-26 12:10 | Day surgery (SDC) | payer OTHER ==
[2020-11-25 09:57] LABS: Basophils # (auto) 0.1 10 ^3/uL (0-0.2); Eosinophils # (auto) 0.2 10 ^3/uL (0-0.8); Lymphocytes # (auto) 0.7 10 ^3/uL (0.4-5.4); Lymphocytes % (auto) 17.3 % (10.0-50.0); White Blood Cell 4.2 10^3/uL (4.4-10.8)
[2020-11-25 10:01] LABS: Basophils % (auto) 1.9 % (0.0-2.0); Eosinophils % (auto) 4.3 % (0.0-7.0); Hematocrit 22.3 % (36.0-46.0); Mean Corpuscular Hemoglobin 17.5 pg (28.0-32.0); Mean Corpuscular Hgb Conc. 30.1 g/dL (32.0-36.0); Mean Corpuscular Volume 58.2 fL (80.0-100.0); Monocytes # (auto) 0.4 10 ^3/uL (0-1.3); Monocytes % (auto) 8.5 % (0.0-12.0); Neutrophils # (auto) 2.8 10 ^3/uL (1.6-8.6); Nucleated Red Blood Cells % 0.2 %; Red Blood Cells 3.84 10^6/uL (4.0-5.20)
[2020-11-25 10:15] LABS: Urine Bacteria NONE SEEN /hpf (None Seen); Urine Blood Negative /uL (Negative); Urine Mucus FEW (None Seen); Urine Specific Gravity 1.018 (1.001-1.035); Urine WBC 2 /hpf (0 - 5)
[2020-11-25 10:27] LABS: Hemoglobin 6.7 g/dL (12.2-16.2)
[2020-11-25 11:05] LABS: Albumin 3.5 g/dL (3.4-5.0); Calcium 9.1 mg/dL (8.5-10.1); Potassium 3.8 mmol/L (3.5-5.1)
[2020-11-25 11:10] LABS: BUN/Creatinine Ratio 16.7; Bilirubin, Total 0.5 mg/dL (0.2-1.0)
[~2020-11-26] VITALS: Ht 167.6 cm; Wt 90.3 kg
[2020-11-26] MEDS ORDERED: fentaNYL CITRATE 100 MCG/2 ML VL ONE (13:33)
[2020-11-26] MEDS ORDERED: KETAMINE HCL 10 ML ONE (13:33)
[2020-11-26] MEDS ORDERED: MIDAZOLAM HCL 2MG/2ML 2ml VIAL (1mg/ml) ONE (13:33)
[2020-11-26] MEDS ORDERED: ONDANSETRON HCL 4 MG/2 ML VIAL ONE (13:33)
[2020-11-26] MEDS ORDERED: SODIUM CHLORIDE LOCK 10 ML ONE (13:33)
[2020-11-26] MEDS ORDERED: PROPOFOL 10 MG/ML 20 ML IV ONE (13:33)
[2020-11-26] MEDS ORDERED: HYDROmorphone HCL 2 MG/ML VL IV PRN (14:30)
[2020-11-26] MEDS ORDERED: MORPHINE SULFATE 4 MG/ML SYR/VIAL IV PRN (14:30)
[2020-11-26] MEDS ORDERED: METOCLOPRAMIDE HCL 5MG/ml INJ 2ml VIAL IV PRN (14:30)
[2020-11-26 15:22] LABS: Hematocrit 26.5 % (36.0-46.0); Hemoglobin 8.1 g/dL (12.2-16.2)
[2020-11-26 15:40] VITALS: BP 140/68
== END 2020-11-26 16:35 | disposition home or self-care (01) ==
LOC: GI 12:10
PROVIDERS: ATTEND Internal Medicine Gastroenterology
DX: D50.9 Iron deficiency anemia, unspecified (principal); K63.5 Polyp of colon; K63.89 Other specified diseases of intestine; K64.8 Other hemorrhoids; K21.9 Gastro-esophageal reflux disease without esophagitis; E03.9 Hypothyroidism, unspecified; Z90.49 Acquired absence of other specified parts of digestive tract; Z86.010 Personal history of colon polyps; Z98.41 Cataract extraction status, right eye; Z98.890 Other specified postprocedural states; Z79.899 Other long term (current) drug therapy
CPT/HCPCS: 36415; 45385; 80053; 81001; 85014; 85018; 85025; 88305; J2250; J2405; J2704; J3010; J7030; U0003; 99152; 99153

== ENCOUNTER → 2020-11-27 | Outpatient (CLI) | payer OTHER | END | disposition home or self-care (01) | LOC: XYW 07:50 | PROVIDERS: ATTEND Internal Medicine | DX: I08.8 Other rheumatic multiple valve diseases (principal); I25.10 Atherosclerotic heart disease of native coronary artery without angina pectoris | CPT/HCPCS: 93306 ==

== ENCOUNTER → 2021-02-10 | Outpatient (CLI) | payer OTHER ==
[2021-02-10 12:43] LABS: Basophils # (auto) 0.1 10 ^3/uL (0-0.2); Basophils % (auto) 1.7 % (0.0-2.0); Eosinophils # (auto) 0.2 10 ^3/uL (0-0.8); Eosinophils % (auto) 5.8 % (0.0-7.0); Hematocrit 39.6 % (36.0-46.0); Hemoglobin 13.3 g/dL (12.2-16.2); Lymphocytes # (auto) 0.6 10 ^3/uL (0.4-5.4); Lymphocytes % (auto) 19.2 % (10.0-50.0); Mean Corpuscular Hemoglobin 27.1 pg (28.0-32.0); Mean Corpuscular Hgb Conc. 33.6 g/dL (32.0-36.0); Mean Corpuscular Volume 80.8 fL (80.0-100.0); Monocytes # (auto) 0.2 10 ^3/uL (0-1.3); Monocytes % (auto) 6.5 % (0.0-12.0); Neutrophils # (auto) 2.2 10 ^3/uL (1.6-8.6); Neutrophils % (auto) 66.8 % (37.0-80.0); Nucleated Red Blood Cells % 0.3 %; Red Cell Distribution Width 14.3 % (11.8-14.3); White Blood Cell 3.3 10^3/uL (4.4-10.8)
[2021-02-10 13:45] LABS: Ferritin 36.7 ng/mL (10-322); Free T4 (Free Thyroxine) 1.13 ng/dL (0.89-1.76)
[2021-02-10 13:46] LABS: Folate (Folic Acid) 10.66 ng/mL (5.38-24)
[2021-02-10 13:47] LABS: Albumin 3.7 g/dL (3.4-5.0); Potassium 3.8 mmol/L (3.5-5.1)
[2021-02-10 13:52] LABS: Bilirubin, Total 0.3 mg/dL (0.2-1.0); Calcium 8.9 mg/dL (8.5-10.1); Magnesium 2.2 mg/dL (1.6-2.6); Total Protein 7.7 g/dL (6.4-8.2)
[2021-02-10 13:58] LABS: % Iron Saturation 25.8 % (15-50)
== END | disposition home or self-care (01) ==
LOC: LAB 12:05
PROVIDERS: ATTEND Internal Medicine
DX: E61.2 Magnesium deficiency (principal); D64.9 Anemia, unspecified
CPT/HCPCS: 36415; 80053; 82607; 82668; 82728; 82746; 83010; 83540; 83550; 83615; 83735; 84439; 84443; 85025; 85045; 85652; 86038; 86880; 86885

== ENCOUNTER 2021-10-27 10:31 | Emergency (ER) | payer OTHER ==
[~2021-10-27] VITALS: Ht 165.1 cm; Wt 89.0 kg
[2021-10-27] MEDS ORDERED: SODIUM CHLORIDE 0.9% 1,000 ML IV ONE (11:00)
[2021-10-27 11:18] LABS: Basophils # (auto) 0 10 ^3/uL (0-0.2); Eosinophils # (auto) 0.1 10 ^3/uL (0-0.8); Eosinophils % (auto) 3.2 % (0.0-7.0); Hematocrit 35.7 % (36.0-46.0); Hemoglobin 11.7 g/dL (12.2-16.2); Lymphocytes # (auto) 0.5 10 ^3/uL (0.4-5.4); Lymphocytes % (auto) 11.9 % (10.0-50.0); Mean Corpuscular Hemoglobin 26.3 pg (28.0-32.0); Mean Corpuscular Hgb Conc. 32.7 g/dL (32.0-36.0); Mean Corpuscular Volume 80.4 fL (80.0-100.0); Monocytes # (auto) 0.3 10 ^3/uL (0-1.3); Neutrophils # (auto) 3.6 10 ^3/uL (1.6-8.6); Neutrophils % (auto) 77.9 % (37.0-80.0); Red Blood Cells 4.44 10^6/uL (4.0-5.20); Red Cell Distribution Width 14.3 % (11.8-14.3); White Blood Cell 4.6 10^3/uL (4.4-10.8)
[2021-10-27 11:49] LABS: Albumin 3.7 g/dL (3.4-5.0); Calcium 9.2 mg/dL (8.5-10.1); Potassium 3.1 mmol/L (3.5-5.1)
[2021-10-27 11:53] LABS: Bilirubin, Total 0.5 mg/dL (0.2-1.0); Total Protein 7.9 g/dL (6.4-8.2)
[2021-10-27 11:56] LABS: BUN/Creatinine Ratio 19.5
[2021-10-27] MEDS ORDERED: POTASSIUM EFFERVESENT TAB 25 MEQ PO ONE (13:30)
[2021-10-27 13:54] VITALS: BP 127/66
[2021-10-27 13:57] LABS: Urine Bacteria NONE SEEN /hpf (None Seen); Urine Blood Negative /uL (Negative); Urine Mucus FEW (None Seen); Urine Specific Gravity 1.027 (1.001-1.035); Urine Sperm PRESENT /hpf (None Seen); Urine WBC 35 /hpf (0 - 5)
== END 2021-10-27 13:29 | disposition home or self-care (01) ==
LOC: ER 10:31
DX: E86.0 Dehydration (principal); E87.6 Hypokalemia; I10 Essential (primary) hypertension; Z90.49 Acquired absence of other specified parts of digestive tract; Z90.89 Acquired absence of other organs; Z79.899 Other long term (current) drug therapy
CPT/HCPCS: 36415; 70450; 80053; 81001; 84484; 85025; 93005; 96360; 96361; 99285; J7030

== ENCOUNTER → 2022-02-22 | Outpatient (CLI) | payer OTHER ==
[2022-02-22 10:23] LABS: Eosinophils # (auto) 0.2 10 ^3/uL (0-0.8); Lymphocytes # (auto) 0.6 10 ^3/uL (0.4-5.4)
[2022-02-22 10:24] LABS: Basophils # (auto) 0.1 10 ^3/uL (0-0.2); Basophils % (auto) 1.6 % (0.0-2.0); Eosinophils % (auto) 4.8 % (0.0-7.0); Hematocrit 25.6 % (36.0-46.0); Hemoglobin 7.9 g/dL (12.2-16.2); Lymphocytes % (auto) 16.5 % (10.0-50.0); Mean Corpuscular Hemoglobin 24.1 pg (28.0-32.0); Mean Corpuscular Hgb Conc. 30.7 g/dL (32.0-36.0); Mean Corpuscular Volume 78.3 fL (80.0-100.0); Monocytes # (auto) 0.2 10 ^3/uL (0-1.3); Monocytes % (auto) 6.4 % (0.0-12.0); Neutrophils # (auto) 2.6 10 ^3/uL (1.6-8.6); Neutrophils % (auto) 70.7 % (37.0-80.0); Nucleated Red Blood Cells % 0.2 %; Red Blood Cells 3.27 10^6/uL (4.0-5.20); Red Cell Distribution Width 16.3 % (11.8-14.3); White Blood Cell 3.7 10^3/uL (4.4-10.8)
[2022-02-22 10:31] LABS: Urine Bacteria NONE SEEN /hpf (None Seen); Urine Blood Negative /uL (Negative); Urine Mucus FEW (None Seen); Urine Specific Gravity 1.021 (1.001-1.035); Urine WBC <1 /hpf (0 - 5)
[2022-02-22 11:14] LABS: Potassium 4.1 mmol/L (3.5-5.1)
[2022-02-22 11:31] LABS: Albumin 3.3 g/dL (3.4-5.0); Bilirubin, Total 0.4 mg/dL (0.2-1.0); Total Protein 7.3 g/dL (6.4-8.2)
== END | disposition home or self-care (01) ==
LOC: LAB 10:02
PROVIDERS: ATTEND Nurse Practitioner
DX: I10 Essential (primary) hypertension (principal); E78.5 Hyperlipidemia, unspecified; E03.9 Hypothyroidism, unspecified
CPT/HCPCS: 36415; 80053; 80061; 81001; 84443; 85025

== ENCOUNTER 2022-02-25 17:58 | Inpatient (IN) | payer OTHER ==
[~2022-02-25] VITALS: Ht 165.1 cm; Wt 84.4 kg
[2022-02-25 18:50] LABS: Basophils # (auto) 0.1 10 ^3/uL (0-0.2); Eosinophils # (auto) 0.2 10 ^3/uL (0-0.8); Eosinophils % (auto) 2.9 % (0.0-7.0); Hematocrit 25.4 % (36.0-46.0); Mean Corpuscular Hgb Conc. 31.7 g/dL (32.0-36.0); Monocytes # (auto) 0.4 10 ^3/uL (0-1.3); Neutrophils # (auto) 3.9 10 ^3/uL (1.6-8.6)
[2022-02-25 18:52] LABS: Basophils % (auto) 1.2 % (0.0-2.0); Lymphocytes # (auto) 0.9 10 ^3/uL (0.4-5.4); Lymphocytes % (auto) 16.4 % (10.0-50.0); Mean Corpuscular Hemoglobin 24.5 pg (28.0-32.0); Mean Corpuscular Volume 77.5 fL (80.0-100.0); Monocytes % (auto) 7.7 % (0.0-12.0); Neutrophils % (auto) 71.8 % (37.0-80.0); Nucleated Red Blood Cells % 0.2 %; Red Blood Cells 3.27 10^6/uL (4.0-5.20); White Blood Cell 5.4 10^3/uL (4.4-10.8)
[2022-02-25 19:02] LABS: Albumin 3.5 g/dL (3.4-5.0); Calcium 9.1 mg/dL (8.5-10.1); Potassium 3.8 mmol/L (3.5-5.1)
[2022-02-25 19:06] LABS: BUN/Creatinine Ratio 23.4; Bilirubin, Total 0.2 mg/dL (0.2-1.0); Total Protein 7.2 g/dL (6.4-8.2)
[2022-02-25 19:08] LABS: INR 0.96 (0.9-1.15); Partial Thromboplastin Time 23.4 sec (24.6-33.4)
[2022-02-25] MEDS ORDERED: ALUM & MAG HYDROX-SIMETH LIQ(MAALOX) 30 ML PO PRN (22:00)
[2022-02-25] MEDS ORDERED: DOCUSATE SOD 100 MG CAP PO PRN (22:00)
[2022-02-25] MEDS ORDERED: ONDANSETRON HCL 4 MG/2 ML VIAL IV PRN (22:00)
[2022-02-25] MEDS ORDERED: ACETAMINOPHEN 325 MG TAB PO PRN (22:00)
[2022-02-25] MEDS: HYDROcodone-ACET 5/325MG TAB PO PRN (23:34)
[2022-02-25] MEDS: FERROUS SULFATE 325mg EC TAB PO SCH (23:34)
[2022-02-26] MEDS: SODIUM CHLORIDE 0.9% 1,000 ML IV SCH ×2 (02:03→08:10)
[2022-02-26 06:51] LABS: Basophils # (auto) 0 10 ^3/uL (0-0.2); Eosinophils # (auto) 0.1 10 ^3/uL (0-0.8); Lymphocytes # (auto) 0.9 10 ^3/uL (0.4-5.4); Monocytes # (auto) 0.4 10 ^3/uL (0-1.3); Neutrophils # (auto) 3.6 10 ^3/uL (1.6-8.6)
[2022-02-26 06:53] LABS: Basophils % (auto) 0.8 % (0.0-2.0); Eosinophils % (auto) 1.7 % (0.0-7.0); Hematocrit 20.7 % (36.0-46.0); Lymphocytes % (auto) 17.5 % (10.0-50.0); Mean Corpuscular Hemoglobin 25.2 pg (28.0-32.0); Mean Corpuscular Hgb Conc. 32.4 g/dL (32.0-36.0); Mean Corpuscular Volume 77.7 fL (80.0-100.0); Monocytes % (auto) 7.9 % (0.0-12.0); Neutrophils % (auto) 72.1 % (37.0-80.0); Red Blood Cells 2.67 10^6/uL (4.0-5.20); Red Cell Distribution Width 16.4 % (11.8-14.3); White Blood Cell 4.9 10^3/uL (4.4-10.8)
[2022-02-26 07:02] LABS: Calcium 8.6 mg/dL (8.5-10.1); Potassium 3.9 mmol/L (3.5-5.1)
[2022-02-26 07:05] LABS: BUN/Creatinine Ratio 28.8
[2022-02-26 07:59] LABS: Hemoglobin 6.7 g/dL (12.2-16.2)
[2022-02-26] MEDS ORDERED: FUROSEMIDE 20 MG/2 ML VIAL IV ONE (09:15)
[2022-02-26 09:31] LABS: % Iron Saturation 65.8 % (15-50)
[2022-02-26 09:52] LABS: Ferritin 6.1 ng/mL (10-322)
[2022-02-26 10:36] LABS: Urine Bacteria FEW /hpf (None Seen); Urine Blood Negative /uL (Negative); Urine Hyaline Cast FEW /lpf (0 - 2); Urine Mucus FEW (None Seen); Urine Specific Gravity 1.009 (1.001-1.035); Urine WBC 3 /hpf (0 - 5)
[2022-02-26 11:02] LABS: Folate (Folic Acid) 11.9 ng/mL (5.38-24)
[2022-02-26] MEDS: B-COMPLEX W/ C & FOLIC ACID(NEPHROVITE TAB) PO SCH (11:12)
[2022-02-26] MEDS: FERROUS SULFATE 325mg EC TAB PO SCH ×2 (11:12→21:28)
[2022-02-26] MEDS: PANTOPRAZOLE 40 MG/10 ML VIAL INJ IV SCH (11:55)
[2022-02-26 12:36] LABS: Basophils # (auto) 0.1 10 ^3/uL (0-0.2); Monocytes # (auto) 0.4 10 ^3/uL (0-1.3); Neutrophils # (auto) 3.5 10 ^3/uL (1.6-8.6); Nucleated Red Blood Cells % 0.1 %
[2022-02-26 12:37] LABS: Basophils % (auto) 1.3 % (0.0-2.0); Eosinophils # (auto) 0.1 10 ^3/uL (0-0.8); Eosinophils % (auto) 2.8 % (0.0-7.0); Hematocrit 24.1 % (36.0-46.0); Lymphocytes % (auto) 19.1 % (10.0-50.0); Mean Corpuscular Hemoglobin 24.9 pg (28.0-32.0); Mean Corpuscular Hgb Conc. 33.1 g/dL (32.0-36.0); Mean Corpuscular Volume 75.4 fL (80.0-100.0); Neutrophils % (auto) 68.8 % (37.0-80.0); Red Blood Cells 3.19 10^6/uL (4.0-5.20); Red Cell Distribution Width 16.6 % (11.8-14.3)
[2022-02-26 12:54] LABS: Albumin 3.4 g/dL (3.4-5.0); Calcium 9.1 mg/dL (8.5-10.1); Potassium 4.1 mmol/L (3.5-5.1)
[2022-02-26 12:57] LABS: BUN/Creatinine Ratio 23.6; Bilirubin, Total 0.3 mg/dL (0.2-1.0); Total Protein 7.2 g/dL (6.4-8.2)
[2022-02-26] MEDS ORDERED: BACL10TA PO (16:36)
[2022-02-26] MEDS ORDERED: FERR325T20 PO (16:36)
[2022-02-26 16:38] VITALS: BP 122/57
[2022-02-26] MEDS ORDERED: CYAN500T15 PO (16:38)
[2022-02-26 17:00] VITALS: BP 118/84
[2022-02-26 21:30] VITALS: BP 130/49
[2022-02-26] MEDS: busPIRone HCL 10 MG TAB PO SCH (21:30)
[2022-02-26] MEDS: ALBUTEROL SULF 2.5 MG/0.5ML(0.5%) NEB SOLN NEB SCH (22:04)
[2022-02-27] VITALS (9 sets, daily range): BP systolic 111–135; BP diastolic 45–74
[2022-02-27 04:19] LABS: Basophils # (auto) 0 10 ^3/uL (0-0.2); Basophils % (auto) 1.2 % (0.0-2.0); Eosinophils # (auto) 0.2 10 ^3/uL (0-0.8); Lymphocytes # (auto) 0.7 10 ^3/uL (0.4-5.4); Mean Corpuscular Volume 76.2 fL (80.0-100.0); Monocytes # (auto) 0.3 10 ^3/uL (0-1.3); Neutrophils # (auto) 2.6 10 ^3/uL (1.6-8.6); White Blood Cell 3.9 10^3/uL (4.4-10.8)
[2022-02-27 04:22] LABS: Eosinophils % (auto) 5.7 % (0.0-7.0); Hematocrit 21.5 % (36.0-46.0); Hemoglobin 7.2 g/dL (12.2-16.2); Lymphocytes % (auto) 17.9 % (10.0-50.0); Mean Corpuscular Hemoglobin 25.3 pg (28.0-32.0); Mean Corpuscular Hgb Conc. 33.2 g/dL (32.0-36.0); Monocytes % (auto) 8.8 % (0.0-12.0); Neutrophils % (auto) 66.4 % (37.0-80.0); Nucleated Red Blood Cells % 0.1 %; Red Blood Cells 2.83 10^6/uL (4.0-5.20); Red Cell Distribution Width 16.2 % (11.8-14.3)
[2022-02-27 05:01] LABS: Albumin 3.1 g/dL (3.4-5.0); BUN/Creatinine Ratio 22.8; Calcium 8.8 mg/dL (8.5-10.1); Magnesium 2.3 mg/dL (1.6-2.6)
[2022-02-27 05:04] LABS: Bilirubin, Total 0.3 mg/dL (0.2-1.0); Total Protein 6.4 g/dL (6.4-8.2)
[2022-02-27] MEDS: LEVOTHYROXINE SODIUM 88 MCG TAB PO SCH (06:41)
[2022-02-27] MEDS: ALBUTEROL SULF 2.5 MG/0.5ML(0.5%) NEB SOLN NEB SCH ×3 (06:57→23:34)
[2022-02-27] MEDS: HYDROcodone-ACET 5/325MG TAB PO PRN ×2 (09:13→21:15)
[2022-02-27] MEDS: B-COMPLEX W/ C & FOLIC ACID(NEPHROVITE TAB) PO SCH (09:54)
[2022-02-27] MEDS: PANTOPRAZOLE 40 MG/10 ML VIAL INJ IV SCH (09:54)
[2022-02-27] MEDS: FERROUS SULFATE 325mg EC TAB PO SCH ×2 (09:55→21:15)
[2022-02-27] MEDS: busPIRone HCL 10 MG TAB PO SCH ×2 (09:55→21:15)
[2022-02-27] MEDS: SERTRALINE HCL 50 MG TAB PO SCH (09:55)
[2022-02-27] MEDS ORDERED: ZOLPIDEM TARTRATE 5 MG TAB PO PRN (23:15)
[2022-02-27] MEDS ORDERED: guaiFENesin 200 MG/10 ML UD PO PRN (23:15)
[2022-02-28 05:00] VITALS: BP 109/55
[2022-02-28] MEDS: LEVOTHYROXINE SODIUM 88 MCG TAB PO SCH (05:17)
[2022-02-28] MEDS: HYDROcodone-ACET 5/325MG TAB PO PRN (05:17)
[2022-02-28 05:45] LABS: Basophils # (auto) 0 10 ^3/uL (0-0.2); Basophils % (auto) 1.1 % (0.0-2.0); Eosinophils # (auto) 0.3 10 ^3/uL (0-0.8); Hemoglobin 8.2 g/dL (12.2-16.2); Lymphocytes # (auto) 0.8 10 ^3/uL (0.4-5.4); Monocytes # (auto) 0.4 10 ^3/uL (0-1.3); Nucleated Red Blood Cells % 0.3 %
[2022-02-28 05:48] LABS: Eosinophils % (auto) 6.7 % (0.0-7.0); Hematocrit 25.1 % (36.0-46.0); Lymphocytes % (auto) 19.1 % (10.0-50.0); Mean Corpuscular Hemoglobin 25.5 pg (28.0-32.0); Mean Corpuscular Hgb Conc. 32.8 g/dL (32.0-36.0); Mean Corpuscular Volume 77.8 fL (80.0-100.0); Monocytes % (auto) 9.2 % (0.0-12.0); Neutrophils # (auto) 2.6 10 ^3/uL (1.6-8.6); Neutrophils % (auto) 63.9 % (37.0-80.0); Red Blood Cells 3.23 10^6/uL (4.0-5.20); Red Cell Distribution Width 16.4 % (11.8-14.3); White Blood Cell 4.1 10^3/uL (4.4-10.8)
[2022-02-28] MEDS: ALBUTEROL SULF 2.5 MG/0.5ML(0.5%) NEB SOLN NEB SCH (06:00)
[2022-02-28 09:00] VITALS: BP 143/65
[2022-02-28] MEDS: busPIRone HCL 10 MG TAB PO SCH (10:25)
[2022-02-28] MEDS: FERROUS SULFATE 325mg EC TAB PO SCH (10:25)
[2022-02-28] MEDS: PANTOPRAZOLE 40 MG/10 ML VIAL INJ IV SCH (10:25)
[2022-02-28] MEDS: B-COMPLEX W/ C & FOLIC ACID(NEPHROVITE TAB) PO SCH (10:25)
[2022-02-28] MEDS: SERTRALINE HCL 50 MG TAB PO SCH (10:26)
[2022-02-28] MEDS ORDERED: PANT40TA2 PO (11:46)
[2022-02-28] MEDS ORDERED: LEVO88TA4 PO (11:46)
[2022-02-28 13:20] VITALS: BP 129/67
== END 2022-02-28 14:18 | disposition home or self-care (01) | DRG 812 ==
LOC: ER 17:58 → TELE 21:56 → TELE-CENTR 02-26 15:33
PROVIDERS: ADMIT Hospitalist; ATTEND Internal Medicine
PROC: 30233N1 Transfusion of Nonautologous Red Blood Cells into Peripheral Vein, Percutaneous Approach (ICD-10-PCS; principal; 2022-02-27)
DX: D64.9 Anemia, unspecified (principal); E03.9 Hypothyroidism, unspecified; E86.0 Dehydration; E66.9 Obesity, unspecified; F41.9 Anxiety disorder, unspecified; I10 Essential (primary) hypertension; Z20.822 Contact with and (suspected) exposure to COVID-19; R55 Syncope and collapse; Z87.19 Personal history of other diseases of the digestive system; Z90.710 Acquired absence of both cervix and uterus; Z90.49 Acquired absence of other specified parts of digestive tract; Z68.31 Body mass index [BMI] 31.0-31.9, adult
CPT/HCPCS: 36415; 71045; 76700; 80048; 80053; 81001; 82270; 82607; 82728; 82746; 83540; 83550; 83615; 83735; 83880; 84484; 85025; 85045; 85610; 85730; 86850; 86880; 86885; 86900; 86901; 86920; 87426; 87804; 93005; 93306; 94640; 96361; 96374; C9113; G0378

== ENCOUNTER 2022-03-22 16:43 | Emergency (ER) | payer OTHER ==
[~2022-03-22] VITALS: Ht 165.1 cm; Wt 81.9 kg
[2022-03-22 18:17] LABS: Basophils # (auto) 0 10 ^3/uL (0-0.2); Eosinophils # (auto) 0.1 10 ^3/uL (0-0.8); Lymphocytes # (auto) 0.6 10 ^3/uL (0.4-5.4); Monocytes # (auto) 0.4 10 ^3/uL (0-1.3); Red Cell Distribution Width 19.7 % (11.8-14.3)
[2022-03-22 18:19] LABS: Basophils % (auto) 0.6 % (0.0-2.0); Eosinophils % (auto) 1.5 % (0.0-7.0); Hematocrit 18.9 % (36.0-46.0); Lymphocytes % (auto) 10.1 % (10.0-50.0); Mean Corpuscular Hemoglobin 22.4 pg (28.0-32.0); Mean Corpuscular Hgb Conc. 30.5 g/dL (32.0-36.0); Mean Corpuscular Volume 73.4 fL (80.0-100.0); Monocytes % (auto) 6.7 % (0.0-12.0); Neutrophils # (auto) 5.1 10 ^3/uL (1.6-8.6); Neutrophils % (auto) 81.1 % (37.0-80.0); Nucleated Red Blood Cells % 0.1 %; Red Blood Cells 2.58 10^6/uL (4.0-5.20); White Blood Cell 6.3 10^3/uL (4.4-10.8)
[2022-03-22 18:25] LABS: Alanine Aminotransferase 19 U/L (13-56); Albumin 3.5 g/dL (3.4-5.0); Anion Gap 14 (5-15); Aspartate Aminotransferase 23 U/L (15-37); BUN/Creatinine Ratio 23.2; Blood Urea Nitrogen 23 mg/dL (7-18); Calcium 9.1 mg/dL (8.5-10.1); Carbon Dioxide 21 mmol/L (21-32); Chloride 107 mmol/L (98-107); GFR African American 70 mL/min; GFR Non-African American 58 mL/min; Glucose 170 mg/dL (74-106); Potassium 3.8 mmol/L (3.5-5.1); Sodium 142 mmol/L (136-145)
[2022-03-22 18:28] LABS: Alkaline Phosphatase 73 U/L (45-117); Bilirubin, Total 0.2 mg/dL (0.2-1.0); Total Protein 7.3 g/dL (6.4-8.2)
[2022-03-22 18:46] LABS: Urine Bacteria NONE SEEN /hpf (None Seen); Urine Blood Negative /uL (Negative); Urine Hyaline Cast MOD /lpf (0 - 2); Urine Mucus FEW (None Seen); Urine Specific Gravity 1.028 (1.001-1.035); Urine WBC 19 /hpf (0 - 5)
[2022-03-22 18:55] LABS: Hemoglobin 5.8 g/dL (12.2-16.2)
[2022-03-22 23:40] VITALS: BP 121/49
[2022-03-22 23:46] VITALS: BP 126/52
[2022-03-23] VITALS (7 sets, daily range): BP systolic 121–128; BP diastolic 54–62
== END 2022-03-23 06:14 | disposition home or self-care (01) ==
LOC: ER 16:43
DX: D64.9 Anemia, unspecified (principal); I10 Essential (primary) hypertension; Z90.49 Acquired absence of other specified parts of digestive tract; Z90.89 Acquired absence of other organs; Z91.018 Allergy to other foods; Z79.899 Other long term (current) drug therapy
CPT/HCPCS: 36415; 36430; 71045; 80053; 81001; 85025; 86850; 86900; 86901; 86920; 99285; P9016

== ENCOUNTER → 2022-03-22 | Outpatient (CLI) | payer OTHER ==
[~2022-03-22] MED LIST changes: +BACL10TA PO; -BACL20TA PO; +CYAN500T15 PO; -DICL1GEL72 EX; -DICL50TA4 PO
[2022-03-22 14:17] LABS: Basophils # (auto) 0 10 ^3/uL (0-0.2); Eosinophils # (auto) 0.1 10 ^3/uL (0-0.8); Monocytes # (auto) 0.5 10 ^3/uL (0-1.3); Nucleated Red Blood Cells % 0.1 %; Red Cell Distribution Width 19.6 % (11.8-14.3)
[2022-03-22 14:19] LABS: Eosinophils % (auto) 1.7 % (0.0-7.0); Hematocrit 17.7 % (36.0-46.0); Lymphocytes # (auto) 0.7 10 ^3/uL (0.4-5.4); Lymphocytes % (auto) 14.7 % (10.0-50.0); Mean Corpuscular Hemoglobin 22.2 pg (28.0-32.0); Mean Corpuscular Volume 71.7 fL (80.0-100.0); Monocytes % (auto) 10.4 % (0.0-12.0); Neutrophils # (auto) 3.6 10 ^3/uL (1.6-8.6); Neutrophils % (auto) 72.2 % (37.0-80.0); Red Blood Cells 2.47 10^6/uL (4.0-5.20)
[2022-03-22 14:32] LABS: Hemoglobin 5.5 g/dL (12.2-16.2)
[2022-03-22 14:43] LABS: Albumin 3.1 g/dL (3.4-5.0); BUN/Creatinine Ratio 29.2; Calcium 8.8 mg/dL (8.5-10.1); Potassium 3.7 mmol/L (3.5-5.1)
[2022-03-22 14:46] LABS: Bilirubin, Total 0.2 mg/dL (0.2-1.0); Total Protein 7.1 g/dL (6.4-8.2)
== END | disposition home or self-care (01) ==
LOC: LAB 14:04
PROVIDERS: ATTEND Nurse Practitioner
DX: I10 Essential (primary) hypertension (principal); E78.5 Hyperlipidemia, unspecified
CPT/HCPCS: 36415; 80053; 85025

== ENCOUNTER 2022-05-12 18:55 | Inpatient (IN) | payer OTHER ==
[~2022-05-12] VITALS: Ht 167.6 cm; Wt 84.4 kg
[2022-05-12 20:34] LABS: Albumin 3.8 g/dL (3.4-5.0); Potassium 3.5 mmol/L (3.5-5.1)
[2022-05-12 20:37] LABS: BUN/Creatinine Ratio 21.7; Bilirubin, Total 0.4 mg/dL (0.2-1.0); Total Protein 7.8 g/dL (6.4-8.2)
[2022-05-12 20:50] LABS: Lymphocytes # (auto) 0.8 10 ^3/uL (0.4-5.4); Neutrophils # (auto) 3.1 10 ^3/uL (1.6-8.6); Nucleated Red Blood Cells % 0.1 %
[2022-05-12 20:51] LABS: Basophils # (auto) 0.1 10 ^3/uL (0-0.2); Basophils % (auto) 1.4 % (0.0-2.0); Eosinophils # (auto) 0.2 10 ^3/uL (0-0.8); Eosinophils % (auto) 3.5 % (0.0-7.0); Hematocrit 21.4 % (36.0-46.0); Lymphocytes % (auto) 18.4 % (10.0-50.0); Mean Corpuscular Hgb Conc. 29.9 g/dL (32.0-36.0); Mean Corpuscular Volume 66.9 fL (80.0-100.0); Monocytes # (auto) 0.3 10 ^3/uL (0-1.3); Monocytes % (auto) 7.6 % (0.0-12.0); Neutrophils % (auto) 69.1 % (37.0-80.0); White Blood Cell 4.4 10^3/uL (4.4-10.8)
[2022-05-12 21:01] LABS: Hemoglobin 6.4 g/dL (12.2-16.2)
[2022-05-12 22:57] LABS: % Iron Saturation 3.1 % (15-50)
[2022-05-12 22:59] LABS: Urine Bacteria FEW /hpf (None Seen); Urine Blood Negative /uL (Negative); Urine Hyaline Cast FEW /lpf (0 - 2); Urine Mucus MODERATE (None Seen); Urine Specific Gravity 1.024 (1.001-1.035); Urine WBC 58 /hpf (0 - 5)
[2022-05-12 23:41] LABS: Folate (Folic Acid) 12.26 ng/mL (5.38-24)
[2022-05-13] VITALS (19 sets, daily range): BP systolic 102–140; BP diastolic 41–76
[2022-05-13] MEDS ORDERED: TEMAZEPAM 15 MG CAP PO PRN (00:15)
[2022-05-13] MEDS ORDERED: ONDANSETRON HCL 4 MG/2 ML VIAL IV PRN (00:15)
[2022-05-13] MEDS: LEVOTHYROXINE SODIUM 88 MCG TAB PO SCH (06:39)
[2022-05-13 07:04] LABS: Hematocrit 18.8 % (36.0-46.0)
[2022-05-13 07:11] LABS: Hemoglobin 5.8 g/dL (12.2-16.2)
[2022-05-13] MEDS: cefTRIAXone 1GM/50ML D5W 50 ML IV SCH (11:00)
[2022-05-13 11:50] LABS: Hepatitis C Antibody Negative (Negative)
[2022-05-13] MEDS: PANTOPRAZOLE 40 MG TAB PO SCH (12:21)
[2022-05-13] MEDS: SERTRALINE HCL 50 MG TAB PO SCH (12:21)
[2022-05-13] MEDS: busPIRone HCL 10 MG TAB PO SCH ×2 (12:22→21:10)
[2022-05-13 17:27] LABS: Hematocrit 24.4 % (36.0-46.0); Hemoglobin 7.8 g/dL (12.2-16.2)
[2022-05-14 04:52] VITALS: BP 135/63
[2022-05-14] MEDS: LEVOTHYROXINE SODIUM 88 MCG TAB PO SCH (06:05)
[2022-05-14 06:55] LABS: Eosinophils # (auto) 0.2 10 ^3/uL (0-0.8); Hemoglobin 7.8 g/dL (12.2-16.2); Lymphocytes # (auto) 0.6 10 ^3/uL (0.4-5.4); Mean Corpuscular Hemoglobin 22.6 pg (28.0-32.0); Monocytes # (auto) 0.3 10 ^3/uL (0-1.3); White Blood Cell 3.2 10^3/uL (4.4-10.8)
[2022-05-14 06:58] LABS: Basophils # (auto) 0 10 ^3/uL (0-0.2); Basophils % (auto) 1.2 % (0.0-2.0); Eosinophils % (auto) 5.6 % (0.0-7.0); Hematocrit 24.7 % (36.0-46.0); Lymphocytes % (auto) 19.6 % (10.0-50.0); Mean Corpuscular Hgb Conc. 31.5 g/dL (32.0-36.0); Mean Corpuscular Volume 71.6 fL (80.0-100.0); Monocytes % (auto) 10.3 % (0.0-12.0); Neutrophils % (auto) 63.3 % (37.0-80.0); Nucleated Red Blood Cells % 0.2 %; Red Blood Cells 3.45 10^6/uL (4.0-5.20)
[2022-05-14 07:07] LABS: Albumin 3.1 g/dL (3.4-5.0); BUN/Creatinine Ratio 25.4; Calcium 8.7 mg/dL (8.5-10.1); Potassium 3.9 mmol/L (3.5-5.1)
[2022-05-14 07:10] LABS: Bilirubin, Total 0.7 mg/dL (0.2-1.0); Total Protein 6.9 g/dL (6.4-8.2)
[2022-05-14 07:27] LABS: Red Cell Distribution Width 25.7 % (11.8-14.3)
[2022-05-14 08:00] VITALS: BP 139/59
[2022-05-14] MEDS: cefTRIAXone 1GM/50ML D5W 50 ML IV SCH (08:41)
[2022-05-14] MEDS ORDERED: LIDOCAINE VISCOUS 2% 15ML UD ONE (09:06)
[2022-05-14] MEDS: busPIRone HCL 10 MG TAB PO SCH ×2 (10:09→22:32)
[2022-05-14] MEDS: PANTOPRAZOLE 40 MG TAB PO SCH ×2 (10:09→22:32)
[2022-05-14] MEDS: SERTRALINE HCL 50 MG TAB PO SCH (10:09)
[2022-05-14 12:00] VITALS: BP 134/52
[2022-05-14] MEDS: MIDAZOLAM HCL 2MG/2ML 2ml VIAL (1mg/ml) ONE ×3 (15:20→15:26)
[2022-05-14] MEDS: fentaNYL CITRATE 100 MCG/2 ML VL ONE ×3 (15:20→15:26)
[2022-05-14] MEDS: diphenhdrAMINE HCL 50 MG/1 ML VL ONE ×2 (15:26→15:28)
[2022-05-14 16:30] VITALS: BP 119/65
[2022-05-14] MEDS: SUCRALFATE 1 GM/10 ML ORAL SUSP PO SCH ×2 (16:43→22:30)
[2022-05-14 16:56] LABS: INR 1.04 (0.9-1.15); Partial Thromboplastin Time 26.2 sec (24.6-33.4)
[2022-05-14 22:00] VITALS: BP 138/53
[2022-05-15 05:00] VITALS: BP 126/54
[2022-05-15] MEDS: LEVOTHYROXINE SODIUM 88 MCG TAB PO SCH (05:30)
[2022-05-15] MEDS: SUCRALFATE 1 GM/10 ML ORAL SUSP PO SCH ×2 (05:31→11:30)
[2022-05-15 06:04] LABS: Basophils # (auto) 0 10 ^3/uL (0-0.2); Eosinophils # (auto) 0.2 10 ^3/uL (0-0.8); Hemoglobin 8.5 g/dL (12.2-16.2); Monocytes # (auto) 0.3 10 ^3/uL (0-1.3)
[2022-05-15 06:07] LABS: Basophils % (auto) 1.1 % (0.0-2.0); Eosinophils % (auto) 6.6 % (0.0-7.0); Hematocrit 27.2 % (36.0-46.0); Lymphocytes # (auto) 0.7 10 ^3/uL (0.4-5.4); Lymphocytes % (auto) 20.1 % (10.0-50.0); Mean Corpuscular Hemoglobin 22.6 pg (28.0-32.0); Mean Corpuscular Hgb Conc. 31.2 g/dL (32.0-36.0); Mean Corpuscular Volume 72.5 fL (80.0-100.0); Monocytes % (auto) 10.2 % (0.0-12.0); Nucleated Red Blood Cells % 0.6 %; Red Blood Cells 3.75 10^6/uL (4.0-5.20); Red Cell Distribution Width 26.2 % (11.8-14.3); White Blood Cell 3.3 10^3/uL (4.4-10.8)
[2022-05-15 07:25] LABS: BUN/Creatinine Ratio 21.8; Calcium 9.2 mg/dL (8.5-10.1)
[2022-05-15 09:28] VITALS: BP 142/76
[2022-05-15] MEDS: busPIRone HCL 10 MG TAB PO SCH (11:04)
[2022-05-15] MEDS: SERTRALINE HCL 50 MG TAB PO SCH (11:04)
[2022-05-15] MEDS: PANTOPRAZOLE 40 MG TAB PO SCH (11:04)
[2022-05-15] MEDS: cefTRIAXone 1GM/50ML D5W 50 ML IV SCH (11:05)
[2022-05-15] MEDS ORDERED: PANT40TA2 PO (11:11)
[2022-05-15] MEDS ORDERED: SUCR1SUS10 PO (11:11)
[2022-05-15] MEDS ORDERED: FERR1TAB36 PO (11:12)
[2022-05-15 12:42] VITALS: BP 111/58
[2022-05-15 12:58] VITALS: BP 111/58
== END 2022-05-15 14:20 | disposition home or self-care (01) | DRG 378 ==
LOC: ER 18:55 → OVERFLOW 05-13 00:12 → EAST 05-13 03:41
PROVIDERS: ADMIT Nurse Practitioner; ATTEND Internal Medicine
PROC: 30233N1 Transfusion of Nonautologous Red Blood Cells into Peripheral Vein, Percutaneous Approach (ICD-10-PCS; 2022-05-13)
PROC: 0DB78ZX Excision of Stomach, Pylorus, Via Natural or Artificial Opening Endoscopic, Diagnostic (ICD-10-PCS; 2022-05-14)
PROC: 0DB98ZX Excision of Duodenum, Via Natural or Artificial Opening Endoscopic, Diagnostic (ICD-10-PCS; principal; 2022-05-14 15:10)
DX: K29.81 Duodenitis with bleeding (principal); N39.0 Urinary tract infection, site not specified; D50.9 Iron deficiency anemia, unspecified; E03.9 Hypothyroidism, unspecified; E86.0 Dehydration; E87.8 Other disorders of electrolyte and fluid balance, not elsewhere classified; I10 Essential (primary) hypertension; K31.7 Polyp of stomach and duodenum; K44.9 Diaphragmatic hernia without obstruction or gangrene; F32.A Depression, unspecified; R73.9 Hyperglycemia, unspecified; Z20.822 Contact with and (suspected) exposure to COVID-19
CPT/HCPCS: 36415; 78278; 80048; 80053; 80061; 81001; 82270; 82306; 82378; 82607; 82728; 82746; 83036; 83540; 83550; 83615; 85014; 85018; 85025; 85045; 85610; 85730; 86803; 86850; 86900; 86901; 86920; 87340; 87426; 99291; A9560; G0378; J0696; J2250

== ENCOUNTER → 2022-05-17 | Outpatient (CLI) | payer OTHER ==
[~2022-05-17] MED LIST changes: -CYAN500T15 PO; +FERR1TAB36 PO; -HYDR-3682 PO; +SUCR1SUS10 PO
[2022-05-17 13:23] LABS: Lymphocytes # (auto) 0.6 10 ^3/uL (0.4-5.4); Monocytes # (auto) 0.4 10 ^3/uL (0-1.3); Nucleated Red Blood Cells % 0.1 %; White Blood Cell 3.5 10^3/uL (4.4-10.8)
[2022-05-17 13:25] LABS: Basophils # (auto) 0.1 10 ^3/uL (0-0.2); Basophils % (auto) 1.6 % (0.0-2.0); Eosinophils # (auto) 0.1 10 ^3/uL (0-0.8); Eosinophils % (auto) 4.1 % (0.0-7.0); Hematocrit 30.1 % (36.0-46.0); Hemoglobin 9.4 g/dL (12.2-16.2); Lymphocytes % (auto) 17.3 % (10.0-50.0); Mean Corpuscular Hemoglobin 22.3 pg (28.0-32.0); Mean Corpuscular Hgb Conc. 31.2 g/dL (32.0-36.0); Mean Corpuscular Volume 71.4 fL (80.0-100.0); Monocytes % (auto) 11.8 % (0.0-12.0); Neutrophils # (auto) 2.3 10 ^3/uL (1.6-8.6); Neutrophils % (auto) 65.2 % (37.0-80.0); Red Blood Cells 4.22 10^6/uL (4.0-5.20)
[2022-05-17 13:42] LABS: Red Cell Distribution Width 26.4 % (11.8-14.3)
== END | disposition home or self-care (01) ==
LOC: LAB 12:53
PROVIDERS: ATTEND Nurse Practitioner
DX: I10 Essential (primary) hypertension (principal)
CPT/HCPCS: 36415; 85025

== ENCOUNTER → 2022-06-02 | Outpatient (CLI) | payer OTHER ==
[~2022-06-02] MED LIST changes: +ALBUTEROL SULF 2.5 MG/0.5ML(0.5%) NEB SOLN ONE
== END | disposition home or self-care (01) ==
LOC: RT 09:14
PROVIDERS: ATTEND Internal Medicine Pulmonary Disease
DX: R06.02 Shortness of breath (principal)
CPT/HCPCS: 94060; 94727; 94729

== ENCOUNTER → 2022-06-18 | Outpatient (CLI) | payer OTHER ==
[~2022-06-18] MED LIST changes: -ALBUTEROL SULF 2.5 MG/0.5ML(0.5%) NEB SOLN ONE
[2022-06-18 12:12] LABS: Basophils # (auto) 0 10 ^3/uL (0-0.2); Eosinophils # (auto) 0.1 10 ^3/uL (0-0.8); Lymphocytes # (auto) 0.6 10 ^3/uL (0.4-5.4); Mean Corpuscular Volume 71.3 fL (80.0-100.0); Monocytes # (auto) 0.2 10 ^3/uL (0-1.3); Neutrophils # (auto) 1.7 10 ^3/uL (1.6-8.6); White Blood Cell 2.7 10^3/uL (4.4-10.8)
[2022-06-18 12:15] LABS: Basophils % (auto) 1.4 % (0.0-2.0); Eosinophils % (auto) 4.5 % (0.0-7.0); Hematocrit 21.6 % (36.0-46.0); Lymphocytes % (auto) 21.3 % (10.0-50.0); Mean Corpuscular Hemoglobin 21.8 pg (28.0-32.0); Mean Corpuscular Hgb Conc. 30.5 g/dL (32.0-36.0); Monocytes % (auto) 7.9 % (0.0-12.0); Neutrophils % (auto) 64.9 % (37.0-80.0); Nucleated Red Blood Cells % 0.1 %; Red Blood Cells 3.03 10^6/uL (4.0-5.20)
[2022-06-18 12:44] LABS: Potassium 3.4 mmol/L (3.5-5.1)
[2022-06-18 12:49] LABS: Red Cell Distribution Width 23.3 % (11.8-14.3)
[2022-06-18 12:53] LABS: Ferritin 16.9 ng/mL (10-322); Folate (Folic Acid) 9.27 ng/mL (5.38-24); Hemoglobin 6.6 g/dL (12.2-16.2)
[2022-06-18 12:57] LABS: BUN/Creatinine Ratio 17.6 (10.0-20.0); Bilirubin, Total 0.2 mg/dL (0.2-1.0); Total Protein 6.8 g/dL (6.4-8.2)
== END | disposition home or self-care (01) ==
LOC: LAB 11:48
PROVIDERS: ATTEND Internal Medicine
DX: K90.49 Malabsorption due to intolerance, not elsewhere classified (principal); D64.9 Anemia, unspecified
CPT/HCPCS: 36415; 80053; 82607; 82728; 82746; 83540; 83615; 85025

== ENCOUNTER → 2022-07-07 | Outpatient (CLI) | payer OTHER ==
[2022-07-07 10:41] LABS: Eosinophils # (auto) 0.1 10 ^3/uL (0-0.8); Hemoglobin 7.3 g/dL (12.2-16.2); Lymphocytes # (auto) 0.5 10 ^3/uL (0.4-5.4); Monocytes # (auto) 0.2 10 ^3/uL (0-1.3); Neutrophils # (auto) 2.1 10 ^3/uL (1.6-8.6); Nucleated Red Blood Cells % 0.1 %
[2022-07-07 10:42] LABS: Basophils # (auto) 0.1 10 ^3/uL (0-0.2); Basophils % (auto) 1.7 % (0.0-2.0); Eosinophils % (auto) 4.7 % (0.0-7.0); Hematocrit 23.4 % (36.0-46.0); Lymphocytes % (auto) 16.4 % (10.0-50.0); Mean Corpuscular Hemoglobin 21.5 pg (28.0-32.0); Mean Corpuscular Hgb Conc. 31.1 g/dL (32.0-36.0); Mean Corpuscular Volume 69.1 fL (80.0-100.0); Monocytes % (auto) 7.8 % (0.0-12.0); Neutrophils % (auto) 69.4 % (37.0-80.0); Red Blood Cells 3.39 10^6/uL (4.0-5.20)
[2022-07-07 11:00] LABS: Red Cell Distribution Width 21.4 % (11.8-14.3)
== END | disposition home or self-care (01) ==
LOC: LAB 10:19
PROVIDERS: ATTEND Nurse Practitioner
DX: D64.9 Anemia, unspecified (principal)
CPT/HCPCS: 36415; 85025

== ENCOUNTER 2022-07-20 13:36 | Emergency (ER) | payer OTHER ==
[~2022-07-20] VITALS: Ht 167.6 cm; Wt 81.4 kg
[~2022-07-20 13:36] MED LIST changes: -NITR-87 PO
[2022-07-20 14:28] VITALS: BP 107/61
[2022-07-20 14:40] LABS: Urine Bacteria NONE SEEN /hpf (None Seen); Urine Blood Negative /uL (Negative); Urine Mucus MANY (None Seen); Urine Specific Gravity 1.026 (1.001-1.035); Urine WBC 8 /hpf (0 - 5)
[2022-07-20 15:48] LABS: INR 0.97 (0.9-1.15); Partial Thromboplastin Time < 20.0 sec (24.6-33.4)
[2022-07-20 16:53] LABS: Basophils # (auto) 0.1 10 ^3/uL (0-0.2); Basophils % (auto) 1.1 % (0.0-2.0); Eosinophils # (auto) 0.2 10 ^3/uL (0-0.8); Eosinophils % (auto) 3.2 % (0.0-7.0); Hematocrit 23.7 % (36.0-46.0); Hemoglobin 7.3 g/dL (12.2-16.2); Lymphocytes % (auto) 16.9 % (10.0-50.0); Mean Corpuscular Hemoglobin 21.3 pg (28.0-32.0); Mean Corpuscular Hgb Conc. 30.8 g/dL (32.0-36.0); Mean Corpuscular Volume 69.2 fL (80.0-100.0); Monocytes # (auto) 0.4 10 ^3/uL (0-1.3); Neutrophils # (auto) 4.1 10 ^3/uL (1.6-8.6); Neutrophils % (auto) 71.8 % (37.0-80.0); Red Blood Cells 3.42 10^6/uL (4.0-5.20); White Blood Cell 5.7 10^3/uL (4.4-10.8)
[2022-07-20 16:56] LABS: Red Cell Distribution Width 23.6 % (11.8-14.3)
[2022-07-20] MEDS ORDERED: NITR-87 PO (21:06)
== END 2022-07-20 23:21 | disposition left against medical advice (07) ==
LOC: ER 13:36
DX: D64.9 Anemia, unspecified (principal); N39.0 Urinary tract infection, site not specified; R53.1 Weakness; Z88.8 Allergy status to other drugs, medicaments and biological substances; Z79.899 Other long term (current) drug therapy; Z90.49 Acquired absence of other specified parts of digestive tract; Z90.710 Acquired absence of both cervix and uterus; Z90.89 Acquired absence of other organs
CPT/HCPCS: 36415; 81001; 85025; 85610; 85730; 86850; 86900; 86901; 86920; 99291

== ENCOUNTER → 2022-07-20 | Outpatient (CLI) | payer OTHER ==
[~2022-07-20] MED LIST changes: +NITR-87 PO
[2022-07-20 10:21] LABS: Basophils # (auto) 0.1 10 ^3/uL (0-0.2); Eosinophils # (auto) 0.2 10 ^3/uL (0-0.8); Eosinophils % (auto) 4.4 % (0.0-7.0); Lymphocytes # (auto) 0.6 10 ^3/uL (0.4-5.4); Neutrophils # (auto) 2.6 10 ^3/uL (1.6-8.6); Nucleated Red Blood Cells % 0.1 %; White Blood Cell 3.7 10^3/uL (4.4-10.8)
[2022-07-20 10:25] LABS: Basophils % (auto) 1.4 % (0.0-2.0); Hematocrit 22.5 % (36.0-46.0); Lymphocytes % (auto) 17.1 % (10.0-50.0); Mean Corpuscular Hemoglobin 21.2 pg (28.0-32.0); Mean Corpuscular Hgb Conc. 30.5 g/dL (32.0-36.0); Mean Corpuscular Volume 69.5 fL (80.0-100.0); Monocytes # (auto) 0.3 10 ^3/uL (0-1.3); Monocytes % (auto) 6.9 % (0.0-12.0); Neutrophils % (auto) 70.2 % (37.0-80.0); Red Blood Cells 3.25 10^6/uL (4.0-5.20)
[2022-07-20 10:31] LABS: Red Cell Distribution Width 22.7 % (11.8-14.3)
[2022-07-20 10:38] LABS: Hemoglobin 6.9 g/dL (12.2-16.2)
[2022-07-20 10:55] LABS: Potassium 3.5 mmol/L (3.5-5.1)
[2022-07-20 11:04] LABS: Folate (Folic Acid) 9.75 ng/mL (5.38-24)
[2022-07-20 11:08] LABS: Albumin 3.5 g/dL (3.4-5.0); BUN/Creatinine Ratio 17.3 (10.0-20.0); Bilirubin, Total 0.6 mg/dL (0.2-1.0); Calcium 8.7 mg/dL (8.5-10.1); Total Protein 7.3 g/dL (6.4-8.2)
== END | disposition home or self-care (01) ==
LOC: LAB 10:05
PROVIDERS: ATTEND Internal Medicine
DX: D64.9 Anemia, unspecified (principal); K90.49 Malabsorption due to intolerance, not elsewhere classified
CPT/HCPCS: 36415; 80053; 82607; 82728; 82746; 83540; 83615; 85025

== ENCOUNTER → 2022-10-21 | Outpatient (CLI) | payer OTHER ==
[~2022-10-21] MED LIST changes: +NITR-87 PO; -SUCR1SUS10 PO; +SUCR1SUS26 PO
== END | disposition home or self-care (01) ==
LOC: Rad HDHVI 09:27
PROVIDERS: ATTEND Internal Medicine Cardiovascular Disease
DX: Z01.818 Encounter for other preprocedural examination (principal); I08.0 Rheumatic disorders of both mitral and aortic valves
CPT/HCPCS: 93306

== ENCOUNTER → 2022-10-25 | Outpatient (CLI) | payer OTHER ==
[2022-10-25 11:26] LABS: Basophils # (auto) 0 10 ^3/uL (0-0.2); Basophils % (auto) 1.9 % (0.0-2.0); Eosinophils # (auto) 0.2 10 ^3/uL (0-0.8); Eosinophils % (auto) 6.1 % (0.0-7.0); Hematocrit 28.2 % (36.0-46.0); Hemoglobin 9.1 g/dL (12.2-16.2); Lymphocytes # (auto) 0.4 10 ^3/uL (0.4-5.4); Mean Corpuscular Hemoglobin 28.3 pg (28.0-32.0); Mean Corpuscular Hgb Conc. 32.4 g/dL (32.0-36.0); Mean Corpuscular Volume 87.5 fL (80.0-100.0); Monocytes # (auto) 0.2 10 ^3/uL (0-1.3); Monocytes % (auto) 6.6 % (0.0-12.0); Neutrophils # (auto) 1.8 10 ^3/uL (1.6-8.6); Neutrophils % (auto) 68.4 % (37.0-80.0); Nucleated Red Blood Cells % 0.1 %; Red Blood Cells 3.23 10^6/uL (4.0-5.20); Red Cell Distribution Width 14.6 % (11.8-14.3); White Blood Cell 2.6 10^3/uL (4.4-10.8)
[2022-10-25 11:37] LABS: Prothrombin Time 10.5 sec (9.3-11.8)
[2022-10-25 12:25] LABS: Albumin 3.6 g/dL (3.4-5.0); Potassium 3.6 mmol/L (3.5-5.1)
[2022-10-25 12:29] LABS: BUN/Creatinine Ratio 16.4 (10.0-20.0); Bilirubin, Total 0.2 mg/dL (0.2-1.0); Total Protein 6.8 g/dL (6.4-8.2)
[2022-10-25 12:32] LABS: Ferritin 16.6 ng/mL (10-322)
[2022-10-25 12:33] LABS: Folate (Folic Acid) 9.13 ng/mL (5.38-24)
[2022-10-25 12:52] LABS: % Iron Saturation 21.1 % (15-50)
== END | disposition home or self-care (01) ==
LOC: LAB 10:42
PROVIDERS: ATTEND Internal Medicine
DX: D64.9 Anemia, unspecified (principal); K90.49 Malabsorption due to intolerance, not elsewhere classified
CPT/HCPCS: 36415; 80053; 82607; 82728; 82746; 83540; 83550; 83615; 85025; 85610; 86703; 86803; 87340

== ENCOUNTER → 2022-10-27 | Outpatient (CLI) | payer OTHER ==
[~2022-10-27] VITALS: Ht 167.6 cm; Wt 79.4 kg
[~2022-10-27] MED LIST changes: +ADENOSINE 67 MG in GIVE UN-DILUTED 0 ML IV ONE; +ADENOSINE 90 MG/30 ML INJ IV ONE
== END | disposition home or self-care (01) ==
LOC: Rad HDHVI 14:30
PROVIDERS: ATTEND Internal Medicine Cardiovascular Disease
DX: R07.89 Other chest pain (principal); R06.02 Shortness of breath; R00.2 Palpitations; I10 Essential (primary) hypertension; E78.5 Hyperlipidemia, unspecified; Z82.49 Family history of ischemic heart disease and other diseases of the circulatory system
CPT/HCPCS: 78452; 93005; 96374; 96375; A9500; J0153

== ENCOUNTER → 2023-04-04 | Outpatient (CLI) | payer OTHER ==
[~2023-04-04] MED LIST changes: -ADENOSINE 67 MG in GIVE UN-DILUTED 0 ML IV ONE; -ADENOSINE 90 MG/30 ML INJ IV ONE
[2023-04-04 11:26] LABS: Urine WBC None Seen /hpf (0 - 5)
[2023-04-04 11:30] LABS: Basophils # (auto) 0.1 10 ^3/uL (0-0.2); Eosinophils # (auto) 0.2 10 ^3/uL (0-0.8); Eosinophils % (auto) 6.3 % (0.0-7.0); Hematocrit 35.6 % (36.0-46.0); Hemoglobin 11.5 g/dL (12.2-16.2); Lymphocytes # (auto) 0.6 10 ^3/uL (0.4-5.4); Lymphocytes % (auto) 24.2 % (10.0-50.0); Mean Corpuscular Hemoglobin 29.4 pg (28.0-32.0); Mean Corpuscular Hgb Conc. 32.4 g/dL (32.0-36.0); Mean Corpuscular Volume 90.8 fL (80.0-100.0); Monocytes # (auto) 0.2 10 ^3/uL (0-1.3); Monocytes % (auto) 8.5 % (0.0-12.0); Neutrophils # (auto) 1.5 10 ^3/uL (1.6-8.6); Nucleated Red Blood Cells % 0.2 %; Red Blood Cells 3.92 10^6/uL (4.0-5.20); Red Cell Distribution Width 15.2 % (11.8-14.3); White Blood Cell 2.5 10^3/uL (4.4-10.8)
[2023-04-04 11:39] LABS: Urine Bacteria NONE SEEN /hpf (None Seen); Urine Blood Negative /uL (Negative); Urine Clarity Clear (Clear); Urine Color Colorless (Yellow); Urine Protein, UAD Negative (Negative); Urine Specific Gravity 1.016 (1.001-1.035); Urine Urobilinogen Normal (Negative); Urine pH 6.5 (5.0-8.0)
[2023-04-04 12:03] LABS: Alanine Aminotransferase 13 U/L (7-40); Albumin 4.3 g/dL (3.2-4.8); Alkaline Phosphatase 73 U/L (46-116); Anion Gap 6 (5-15); Aspartate Aminotransferase 16 U/L (13-40); BUN/Creatinine Ratio 19.4 (10.0-20.0); Blood Urea Nitrogen 12 mg/dL (9-23); Calcium 9.7 mg/dL (8.5-10.1); Carbon Dioxide 26 mmol/L (20-30); Chloride 109 mmol/L (98-107); Cholesterol 180 mg/dL (< 200); Glucose 88 mg/dL (74-106); HDL Cholesterol 54 mg/dL (40-59); LDL Cholesterol 120 mg/dL (< 100); Potassium 4.3 mmol/L (3.5-5.1); Sodium 141 mmol/L (136-145); Triglycerides 100 mg/dL (< 150)
[2023-04-04 12:04] LABS: Bilirubin, Total 0.3 mg/dL (0.2-1.0); Total Protein 7.1 g/dL (5.7-8.2)
== END | disposition home or self-care (01) ==
LOC: LAB 11:09
PROVIDERS: ATTEND Nurse Practitioner
DX: I10 Essential (primary) hypertension (principal); E78.5 Hyperlipidemia, unspecified
CPT/HCPCS: 36415; 80053; 80061; 81001; 83036; 84443; 85025

== ENCOUNTER → 2023-04-25 | Outpatient (CLI) | payer OTHER ==
[2023-04-25 12:11] LABS: Basophils # (auto) 0.1 10 ^3/uL (0-0.2); Basophils % (auto) 2.2 % (0.0-2.0); Eosinophils # (auto) 0.4 10 ^3/uL (0-0.8); Eosinophils % (auto) 12.4 % (0.0-7.0); Hematocrit 32.1 % (36.0-46.0); Hemoglobin 10.5 g/dL (12.2-16.2); Lymphocytes # (auto) 0.6 10 ^3/uL (0.4-5.4); Lymphocytes % (auto) 18.3 % (10.0-50.0); Mean Corpuscular Hemoglobin 29.7 pg (28.0-32.0); Mean Corpuscular Hgb Conc. 32.9 g/dL (32.0-36.0); Mean Corpuscular Volume 90.5 fL (80.0-100.0); Monocytes # (auto) 0.2 10 ^3/uL (0-1.3); Monocytes % (auto) 7.3 % (0.0-12.0); Neutrophils % (auto) 59.8 % (37.0-80.0); Nucleated Red Blood Cells % 0.1 %; Red Blood Cells 3.55 10^6/uL (4.0-5.20); Red Cell Distribution Width 13.8 % (11.8-14.3); White Blood Cell 3.4 10^3/uL (4.4-10.8)
[2023-04-25 12:53] LABS: Alkaline Phosphatase 70 U/L (46-116); Anion Gap 8 (5-15); Aspartate Aminotransferase 17 U/L (13-40); BUN/Creatinine Ratio 18.2 (10.0-20.0); Bilirubin, Total 0.3 mg/dL (0.2-1.0); Blood Urea Nitrogen 14 mg/dL (9-23); Calcium 9.7 mg/dL (8.5-10.1); Carbon Dioxide 25 mmol/L (20-30); Chloride 108 mmol/L (98-107); Glucose 84 mg/dL (74-106); Potassium 4.3 mmol/L (3.5-5.1); Sodium 141 mmol/L (136-145); Total Protein 6.7 g/dL (5.7-8.2)
[2023-04-25 12:56] LABS: Ferritin 16.4 ng/mL (10-291)
[2023-04-25 12:57] LABS: Alanine Aminotransferase < 9 U/L (7-40)
== END | disposition home or self-care (01) ==
LOC: LAB 11:49
PROVIDERS: ATTEND Internal Medicine
DX: D64.9 Anemia, unspecified (principal); D70.9 Neutropenia, unspecified; K90.49 Malabsorption due to intolerance, not elsewhere classified
CPT/HCPCS: 36415; 80053; 82607; 82728; 83540; 83615; 85025; 86880

== ENCOUNTER 2023-06-20 06:16 | Inpatient (IN) | payer OTHER ==
[2023-06-17 10:41] LABS: Urine Bacteria None Seen /hpf (None Seen)
[2023-06-17 10:49] LABS: Basophils # (auto) 0 10 ^3/uL (0-0.2); Basophils % (auto) 1.1 % (0.0-2.0); Eosinophils # (auto) 0.1 10 ^3/uL (0-0.8); Eosinophils % (auto) 3.8 % (0.0-7.0); Hematocrit 34.1 % (36.0-46.0); Lymphocytes # (auto) 0.6 10 ^3/uL (0.4-5.4); Lymphocytes % (auto) 17.3 % (10.0-50.0); Mean Corpuscular Hemoglobin 29.3 pg (28.0-32.0); Mean Corpuscular Hgb Conc. 32.3 g/dL (32.0-36.0); Mean Corpuscular Volume 90.7 fL (80.0-100.0); Monocytes # (auto) 0.3 10 ^3/uL (0-1.3); Monocytes % (auto) 8.8 % (0.0-12.0); Neutrophils # (auto) 2.4 10 ^3/uL (1.6-8.6); Nucleated Red Blood Cells % 0.2 %; Red Blood Cells 3.76 10^6/uL (4.0-5.20); Red Cell Distribution Width 14.3 % (11.8-14.3); White Blood Cell 3.5 10^3/uL (4.4-10.8)
[2023-06-17 10:57] LABS: INR 1.03 (0.9-1.15); Partial Thromboplastin Time 26.2 SEC (24.5-34.5); Prothrombin Time 10.8 sec (9.3-11.8)
[2023-06-17 11:26] LABS: Alanine Aminotransferase 16 U/L (7-40); Albumin 4.2 g/dL (3.2-4.8); Alkaline Phosphatase 69 U/L (46-116); Anion Gap 8 (5-15); Aspartate Aminotransferase 17 U/L (13-40); Bilirubin, Total 0.2 mg/dL (0.2-1.0); Blood Urea Nitrogen 12 mg/dL (9-23); Calcium 9.4 mg/dL (8.5-10.1); Carbon Dioxide 25 mmol/L (20-30); Chloride 109 mmol/L (98-107); Glucose 78 mg/dL (74-106); Potassium 4.3 mmol/L (3.5-5.1); Sodium 142 mmol/L (136-145); Total Protein 6.5 g/dL (5.7-8.2)
[2023-06-17 12:15] LABS: Urine Blood Negative /uL (Negative); Urine Budding Yeast OCCASIONAL /hpf (None Seen); Urine Clarity Clear (Clear); Urine Color Yellow (Yellow); Urine Hyaline Cast FEW /lpf (0 - 2); Urine Mucus FEW (None Seen); Urine Protein, UAD TRACE (Negative); Urine Specific Gravity 1.032 (1.001-1.035); Urine Urobilinogen Normal (Negative); Urine WBC 1 /hpf (0 - 5)
[~2023-06-20] VITALS: Ht 168.9 cm; Wt 97.5 kg
[2023-06-20] VITALS (7 sets, daily range): BP systolic 102–131; BP diastolic 57–64; PULSE 75–100; RESP 14–18; TEMP 97.8–98.3; O2SAT 94–96
[~2023-06-20 06:16] MED LIST changes: +ASCO500C49 PO; +CHOL25CH3 PO; +FER325T PO; -FERR1TAB36 PO; +METH50006 SL; -NITR-87 PO; -SUCR1SUS26 PO; +TURMPOW PO
[2023-06-20] MEDS: EPINEPHrine HCL 1 MG/1 ML AMP ONE (06:41)
[2023-06-20] MEDS: DexAMETHasone SOD PHOS 4 MG/1ML SDV INJ ONE (06:41)
[2023-06-20] MEDS: BUPIVACAINE 0.25% INJ 50ML VIAL ONE (06:41)
[2023-06-20] MEDS: BUPIVACAINE HCL 50 ML ONE (06:41)
[2023-06-20] MEDS: ACETAMINOPHEN IV 100 ML IV ONE (06:46)
[2023-06-20] MEDS: ceFAZolin 2 GM/D5W50ml 50 ML IV ONE (06:46)
[2023-06-20] MEDS ORDERED: DexAMETHasone SOD PHOS 10MG/1ML VIAL INJ ONE (06:52)
[2023-06-20] MEDS ORDERED: KETOROLAC TROMETH 30 MG/ML 1ML VIAL ONE ×2 (06:52→06:55)
[2023-06-20] MEDS ORDERED: ONDANSETRON HCL 4 MG/2 ML VIAL ONE (06:52)
[2023-06-20] MEDS ORDERED: GLYCOPYRROLATE 0.2 MG/ML 1ML VIAL ONE (06:52)
[2023-06-20] MEDS ORDERED: LIDOCAINE 2% (LOCAL ANESTH.) PF 5ml SDV ONE (06:52)
[2023-06-20] MEDS ORDERED: KETAMINE 50mg/ML 1ml syringe ONE (06:52)
[2023-06-20] MEDS ORDERED: KETAMINE 50mg/ML 10ml Vial 0 ML ONE (06:52)
[2023-06-20] MEDS ORDERED: PROPOFOL 10 MG/ML 20 ML IV ONE ×2 (06:52→08:02)
[2023-06-20] MEDS: BUPIVACAINE W/ EPINEPH 0.5% INJ 50ML MDV IJ ONE (06:54)
[2023-06-20] MEDS: TRANEXAMIC ACID 20 ML ONE (06:54)
[2023-06-20] MEDS ORDERED: MORPHINE SULF PF 5 MG/10 ML VIAL ONE (06:55)
[2023-06-20] MEDS: ACETAMINOPHEN IV 1000 MG/100ML (10MG/ML) IV ONE (07:00)
[2023-06-20] MEDS: PREGABALIN CAPSULE 75 MG CAP PO ONE (07:00)
[2023-06-20] MEDS: CELECOXIB 100 MG CAP PO ONE (07:00)
[2023-06-20] MEDS: CELECOXIB 100 MG CAP ONE (07:01)
[2023-06-20] MEDS: VANCOMYCIN HCL 1000 MG VL ONE (07:13)
[2023-06-20] MEDS ORDERED: ONDANSETRON HCL 4 MG/2 ML VIAL IV PRN ×2 (07:30→09:15)
[2023-06-20] MEDS ORDERED: MORPHINE SULFATE INJ 2 MG/ml SYRG IV PRN (07:30)
[2023-06-20] MEDS ORDERED: HYDROmorphone HCL 2 MG/ML VL/or syr IV PRN ×2 (07:30→09:15)
[2023-06-20] MEDS ORDERED: NITROGLYCERIN 0.4 MG SL TAB SL PRN (07:30)
[2023-06-20] MEDS ORDERED: ePHEDrine SULFATE 50 MG/ML AMP IV PRN (09:15)
[2023-06-20] MEDS ORDERED: hydrALAZINE HCL 20 MG/ML VL IV PRN (09:15)
[2023-06-20] MEDS ORDERED: LABETALOL HCL 5 MG/ML 4ML SYRINGE IV PRN (09:15)
[2023-06-20] MEDS ORDERED: NALOXONE HCL 0.4 MG/ML VIAL IV PRN (09:15)
[2023-06-20] MEDS ORDERED: fentaNYL CITRATE 100 MCG/2 ML VL IV PRN (09:15)
[2023-06-20] MEDS ORDERED: oxyCODONE HCL 5MG TAB PO PRN (09:15)
[2023-06-20] MEDS ORDERED: FLUMAZENIL 0.1 MG/ML INJ 10ML MDV IV PRN (09:15)
[2023-06-20] MEDS ORDERED: BUSPIRONE HCL 15 MG PO SCH (10:00)
[2023-06-20] MEDS ORDERED: ASCORBIC ACID 500 MG TAB PO SCH (10:00)
[2023-06-20] MEDS: ENOXAPARIN SOD 40 MG/0.4 ML SYRINGE SC SCH (10:00)
[2023-06-20] MEDS: SUCRALFATE 1 GM TAB PO SCH (12:33)
[2023-06-20] MEDS: busPIRone HCL 10 MG TAB PO SCH (12:33)
[2023-06-20] MEDS: SERTRALINE HCL 50 MG TAB PO SCH (12:33)
[2023-06-20] MEDS: DOCUSATE SOD 100 MG CAP PO SCH (12:33)
[2023-06-20] MEDS: PANTOPRAZOLE 40 MG TAB PO SCH (12:34)
[2023-06-20] MEDS: hydrALAZINE HCL 20 MG/ML VL IV SCH (12:35)
[2023-06-20] MEDS: ceFAZolin 1GM/50ML 50 ML IV SCH (14:07)
[2023-06-20] MEDS: SODIUM CHLOR 0.9% PF (SALINE LOCK) 10ML VIAL/SYR IV SCH (14:07)
[2023-06-20] MEDS: LACTATED RINGER'S 1,000 ML IV SCH (14:18)
[2023-06-20] MEDS ORDERED: MECOBALAMIN 5000 MCG SL SCH (18:00)
[2023-06-20] MEDS: CIPROFLOXACIN HYDROCHLORIDE 250 MG TAB PO SCH (21:46)
[2023-06-21] VITALS (8 sets, daily range): BP systolic 100–127; BP diastolic 47–65; PULSE 65–88; RESP 12–22; TEMP 97.9–98.7; O2SAT 94–99
[2023-06-21 06:48] LABS: Alanine Aminotransferase 11 U/L (7-40); Albumin 3.4 g/dL (3.2-4.8); Alkaline Phosphatase 57 U/L (46-116); Anion Gap 9 (5-15); Aspartate Aminotransferase 18 U/L (13-40); BUN/Creatinine Ratio 21.7 (10.0-20.0); Blood Urea Nitrogen 13 mg/dL (9-23); Calcium 8.8 mg/dL (8.5-10.1); Carbon Dioxide 23 mmol/L (20-30); Chloride 110 mmol/L (98-107); Glucose 101 mg/dL (74-106); Potassium 4.1 mmol/L (3.5-5.1); Sodium 142 mmol/L (136-145)
[2023-06-21 06:49] LABS: Bilirubin, Total 0.3 mg/dL (0.2-1.0); Total Protein 5.7 g/dL (5.7-8.2)
[2023-06-21] MEDS: LEVOTHYROXINE SODIUM 88 MCG TAB PO SCH (06:49)
[2023-06-21 06:57] LABS: Basophils # (auto) 0 10 ^3/uL (0-0.2); Basophils % (auto) 0.1 % (0.0-2.0); Eosinophils # (auto) 0 10 ^3/uL (0-0.8); Eosinophils % (auto) 0.1 % (0.0-7.0); Hematocrit 27.2 % (36.0-46.0); Hemoglobin 8.7 g/dL (12.2-16.2); Lymphocytes # (auto) 0.4 10 ^3/uL (0.4-5.4); Lymphocytes % (auto) 5.5 % (10.0-50.0); Mean Corpuscular Hemoglobin 29.9 pg (28.0-32.0); Mean Corpuscular Hgb Conc. 32.1 g/dL (32.0-36.0); Mean Corpuscular Volume 93.1 fL (80.0-100.0); Monocytes # (auto) 0.5 10 ^3/uL (0-1.3); Monocytes % (auto) 8.1 % (0.0-12.0); Neutrophils # (auto) 5.7 10 ^3/uL (1.6-8.6); Neutrophils % (auto) 86.2 % (37.0-80.0); Red Blood Cells 2.92 10^6/uL (4.0-5.20); Red Cell Distribution Width 14.9 % (11.8-14.3); White Blood Cell 6.7 10^3/uL (4.4-10.8)
[2023-06-21] MEDS ORDERED: CHOLECALCIFEROL (VITD3) 1,000UNIT=25mCg TAB PO SCH (07:00)
[2023-06-21] MEDS: OXYCODONE W/ ACETAMINOPHEN 5/325MG TABLET PO PRN (10:06)
[2023-06-22] VITALS (7 sets, daily range): BP systolic 117–131; BP diastolic 49–65; PULSE 63–97; RESP 16–20; TEMP 37; O2SAT 80–99
== END 2023-06-22 18:17 | disposition home health service (06) | DRG 470 ==
LOC: SUR 06:16 → OVERFLOW 08:26 → WEST WING 11:10
PROVIDERS: ADMIT Orthopaedic Surgery Adult Reconstructive Orthopaedic Surgery; ATTEND Internal Medicine
PROC: 8E0YXBF Computer Assisted Procedure of Lower Extremity, With Fluoroscopy (ICD-10-PCS; 2023-06-20)
PROC: 0SRC0J9 Replacement of Right Knee Joint with Synthetic Substitute, Cemented, Open Approach (ICD-10-PCS; principal; 2023-06-20 07:16)
DX: M17.11 Unilateral primary osteoarthritis, right knee (principal); E03.9 Hypothyroidism, unspecified; F41.9 Anxiety disorder, unspecified; E66.9 Obesity, unspecified; F32.A Depression, unspecified; Z88.8 Allergy status to other drugs, medicaments and biological substances; Z79.899 Other long term (current) drug therapy; Z68.34 Body mass index [BMI] 34.0-34.9, adult
CPT/HCPCS: 36415; 73562; 80053; 81001; 82962; 84443; 85025; 85610; 85730; 86850; 86900; 86901; 97110; 97116; 97163; 97530; G0378; J0131; J0171; J1100; J1885; J2001; J2405; J2704; J3490

== ENCOUNTER → 2023-12-13 | Outpatient (CLI) | payer OTHER ==
[~2023-12-13] VITALS: Ht 167.6 cm; Wt 78.9 kg
[~2023-12-13] MED LIST changes: +ADENOSINE 66 MG in GIVE UN-DILUTED 0 ML IV ONE; +ADENOSINE 90 MG/30 ML INJ IV ONE
== END | disposition home or self-care (01) ==
LOC: Rad HDHVI 09:36
PROVIDERS: ATTEND Internal Medicine Cardiovascular Disease
DX: I10 Essential (primary) hypertension (principal); E78.00 Pure hypercholesterolemia, unspecified; R07.89 Other chest pain; J45.909 Unspecified asthma, uncomplicated; Z82.49 Family history of ischemic heart disease and other diseases of the circulatory system
CPT/HCPCS: 78452; 93005; 96374; 96375; A9500; J0153

== ENCOUNTER → 2023-12-14 | Outpatient (CLI) | payer OTHER ==
[~2023-12-14] MED LIST changes: -ADENOSINE 66 MG in GIVE UN-DILUTED 0 ML IV ONE; -ADENOSINE 90 MG/30 ML INJ IV ONE
== END | disposition home or self-care (01) ==
LOC: Rad HDHVI 08:01
PROVIDERS: ATTEND Internal Medicine Cardiovascular Disease
DX: I35.8 Other nonrheumatic aortic valve disorders (principal); I11.9 Hypertensive heart disease without heart failure; R07.89 Other chest pain
CPT/HCPCS: 93306

== ENCOUNTER → 2024-02-16 | Outpatient (CLI) | payer OTHER ==
[2024-02-16 11:56] LABS: Basophils # (auto) 0 10 ^3/uL (0-0.2); Basophils % (auto) 1.1 % (0.0-2.0); Eosinophils # (auto) 0.2 10 ^3/uL (0-0.8); Eosinophils % (auto) 5.8 % (0.0-7.0); Hemoglobin 10.8 g/dL (12.2-16.2); Lymphocytes # (auto) 0.6 10 ^3/uL (0.4-5.4); Mean Corpuscular Hemoglobin 30.4 pg (28.0-32.0); Mean Corpuscular Hgb Conc. 32.9 g/dL (32.0-36.0); Mean Corpuscular Volume 92.4 fL (80.0-100.0); Monocytes # (auto) 0.3 10 ^3/uL (0-1.3); Monocytes % (auto) 9.4 % (0.0-12.0); Neutrophils # (auto) 2.3 10 ^3/uL (1.6-8.6); Neutrophils % (auto) 66.7 % (37.0-80.0); Platelet Count (auto) 175 10^3/uL (140-450); Red Blood Cells 3.57 10^6/uL (4.0-5.20); Red Cell Distribution Width 14.4 % (11.8-14.3); White Blood Cell 3.4 10^3/uL (4.4-10.8)
[2024-02-16 12:24] LABS: Wright Stain Ready for Review
[2024-02-16 12:44] LABS: % Iron Saturation 82.4 % (15-50)
[2024-02-16 12:46] LABS: Alanine Aminotransferase 16 U/L (7-40); Albumin 4.3 g/dL (3.2-4.8); Alkaline Phosphatase 85 U/L (46-116); Anion Gap 7 (5-15); Aspartate Aminotransferase 19 U/L (13-40); BUN/Creatinine Ratio 18.3 (10.0-20.0); Bilirubin, Total 0.3 mg/dL (0.2-1.0); Blood Urea Nitrogen 11 mg/dL (9-23); Calcium 10.1 mg/dL (8.7-10.4); Carbon Dioxide 28 mmol/L (20-31); Chloride 106 mmol/L (98-107); Glucose 77 mg/dL (74-106); Sodium 141 mmol/L (136-145)
[2024-02-16 12:47] LABS: Total Protein 7.1 g/dL (5.7-8.2)
[2024-02-16 12:48] LABS: Ferritin 25.9 ng/mL (10-291)
[2024-02-16 12:49] LABS: Folate (Folic Acid) 10.15 ng/mL (>5.38)
== END | disposition home or self-care (01) ==
LOC: LAB 11:15
PROVIDERS: ATTEND Internal Medicine
DX: D64.9 Anemia, unspecified (principal); D70.9 Neutropenia, unspecified; K90.49 Malabsorption due to intolerance, not elsewhere classified
CPT/HCPCS: 36415; 80053; 82607; 82728; 82746; 83540; 83550; 83615; 85025; 85045

== ENCOUNTER → 2024-03-26 | Outpatient (CLI) | payer MEDICAID ==
[2024-03-26 12:08] LABS: Basophils # (auto) 0.1 10 ^3/uL (0-0.2); Basophils % (auto) 1.2 % (0.0-2.0); Eosinophils # (auto) 0.4 10 ^3/uL (0-0.8); Hematocrit 34.9 % (36.0-46.0); Hemoglobin 11.2 g/dL (12.2-16.2); Lymphocytes # (auto) 0.6 10 ^3/uL (0.4-5.4); Lymphocytes % (auto) 14.8 % (10.0-50.0); Mean Corpuscular Hemoglobin 29.1 pg (28.0-32.0); Mean Corpuscular Hgb Conc. 32.2 g/dL (32.0-36.0); Mean Corpuscular Volume 90.5 fL (80.0-100.0); Monocytes # (auto) 0.4 10 ^3/uL (0-1.3); Monocytes % (auto) 8.6 % (0.0-12.0); Neutrophils # (auto) 2.7 10 ^3/uL (1.6-8.6); Neutrophils % (auto) 66.4 % (37.0-80.0); Nucleated Red Blood Cells % 0.1 %; Platelet Count (auto) 150 10^3/uL (140-450); Red Blood Cells 3.85 10^6/uL (4.0-5.20); Red Cell Distribution Width 14.5 % (11.8-14.3); White Blood Cell 4.1 10^3/uL (4.4-10.8)
[2024-03-26 12:58] LABS: Erythrocyte Sedimentation Rate 13 mm/hr (0-20)
== END | disposition home or self-care (01) ==
LOC: LAB 10:56
PROVIDERS: ATTEND Orthopaedic Surgery Adult Reconstructive Orthopaedic Surgery
DX: M13.869 Other specified arthritis, unspecified knee (principal); M25.469 Effusion, unspecified knee; Z96.651 Presence of right artificial knee joint
CPT/HCPCS: 36415; 85025; 85652; 86141

== ENCOUNTER → 2024-05-14 | Outpatient (CLI) | payer MEDICAID ==
[2024-05-14 12:49] LABS: Basophils # (auto) 0 10 ^3/uL (0-0.2); Basophils % (auto) 1.1 % (0.0-2.0); Eosinophils # (auto) 0.1 10 ^3/uL (0-0.8); Hematocrit 37.5 % (36.0-46.0); Hemoglobin 11.9 g/dL (12.2-16.2); Lymphocytes # (auto) 0.7 10 ^3/uL (0.4-5.4); Lymphocytes % (auto) 21.5 % (10.0-50.0); Mean Corpuscular Hemoglobin 27.7 pg (28.0-32.0); Mean Corpuscular Hgb Conc. 31.9 g/dL (32.0-36.0); Monocytes # (auto) 0.3 10 ^3/uL (0-1.3); Monocytes % (auto) 9.6 % (0.0-12.0); Neutrophils # (auto) 2.2 10 ^3/uL (1.6-8.6); Neutrophils % (auto) 63.8 % (37.0-80.0); Nucleated Red Blood Cells % 0.1 %; Platelet Count (auto) 143 10^3/uL (140-450); Red Blood Cells 4.31 10^6/uL (4.0-5.20); Red Cell Distribution Width 14.5 % (11.8-14.3); White Blood Cell 3.5 10^3/uL (4.4-10.8)
[2024-05-14 13:08] LABS: Alanine Aminotransferase 18 U/L (7-40); Albumin 4.4 g/dL (3.2-4.8); Alkaline Phosphatase 83 U/L (46-116); Anion Gap 7 (5-15); Aspartate Aminotransferase 21 U/L (13-40); BUN/Creatinine Ratio 19.4 (10.0-20.0); Blood Urea Nitrogen 13 mg/dL (9-23); Calcium 9.7 mg/dL (8.7-10.4); Carbon Dioxide 26 mmol/L (20-31); Glucose 81 mg/dL (74-106); Potassium 4.2 mmol/L (3.5-5.1); Sodium 142 mmol/L (136-145); Total Protein 7.4 g/dL (5.7-8.2)
[2024-05-14 13:09] LABS: Bilirubin, Total 0.3 mg/dL (0.2-1.0); Chloride 109 mmol/L (98-107)
[2024-05-14 13:13] LABS: Thyroid Stimulating Hormone 0.4 uIU/mL (0.55-4.78)
[2024-05-14 13:14] LABS: Wright Stain Ready for Review
[2024-05-14 13:15] LABS: Ferritin 25.2 ng/mL (10-291); Folate (Folic Acid) 14.52 ng/mL (>5.38)
[2024-05-14 15:17] LABS: % Iron Saturation 23.1 % (15-50)
== END | disposition home or self-care (01) ==
LOC: LAB 12:07
PROVIDERS: ATTEND Nurse Practitioner
DX: D64.9 Anemia, unspecified (principal); D70.9 Neutropenia, unspecified; K90.49 Malabsorption due to intolerance, not elsewhere classified
CPT/HCPCS: 36415; 80053; 82306; 82607; 82728; 82746; 83540; 83550; 83615; 84443; 85025; 85045

== ENCOUNTER → 2024-06-25 | Outpatient (CLI) | payer MEDICAID ==
[2024-06-25 14:14] LABS: Basophils # (auto) 0 10 ^3/uL (0-0.2); Basophils % (auto) 0.9 % (0.0-2.0); Eosinophils # (auto) 0.2 10 ^3/uL (0-0.8); Hematocrit 34.8 % (36.0-46.0); Hemoglobin 11.8 g/dL (12.2-16.2); Mean Corpuscular Hemoglobin 29.3 pg (28.0-32.0); Mean Corpuscular Hgb Conc. 33.9 g/dL (32.0-36.0); Mean Corpuscular Volume 86.5 fL (80.0-100.0); Monocytes # (auto) 0.5 10 ^3/uL (0-1.3); Monocytes % (auto) 9.9 % (0.0-12.0); Neutrophils % (auto) 64.2 % (37.0-80.0); Nucleated Red Blood Cells % 0.1 %; Platelet Count (auto) 172 10^3/uL (140-450); Red Blood Cells 4.02 10^6/uL (4.0-5.20); Red Cell Distribution Width 15.5 % (11.8-14.3); Urine Bacteria FEW /hpf (None Seen); Urine Blood Negative /uL (Negative); Urine Clarity Clear (Clear); Urine Color Light-Yellow (Yellow); Urine Mucus FEW (None Seen); Urine Protein, UAD Negative (Negative); Urine Squamous Epithelial Cell FEW /hpf (<5); Urine Urobilinogen Normal (Negative); Urine WBC 1 /HPF (0-5); Urine pH 5.5 (5.0-9.0); White Blood Cell 4.6 10^3/uL (4.4-10.8)
[2024-06-25 14:29] LABS: Alanine Aminotransferase 21 U/L (7-40); Albumin 4.4 g/dL (3.2-4.8); Alkaline Phosphatase 92 U/L (46-116); Anion Gap 8 (5-15); Aspartate Aminotransferase 20 U/L (13-40); BUN/Creatinine Ratio 23.1 (10.0-20.0); Blood Urea Nitrogen 15 mg/dL (9-23); Carbon Dioxide 27 mmol/L (20-31); Chloride 106 mmol/L (98-107); Cholesterol 190 mg/dL (< 200); Sodium 141 mmol/L (136-145); Total Protein 7.5 g/dL (5.7-8.2)
[2024-06-25 14:30] LABS: Bilirubin, Total 0.4 mg/dL (0.2-1.0); HDL Cholesterol 45 mg/dL (40-59)
[2024-06-25 14:31] LABS: Glucose 72 mg/dL (74-106); LDL Cholesterol 124 mg/dL (< 100); Triglycerides 196 mg/dL (< 150)
== END | disposition home or self-care (01) ==
LOC: LAB 13:27
PROVIDERS: ATTEND Nurse Practitioner
DX: I10 Essential (primary) hypertension (principal); E78.5 Hyperlipidemia, unspecified; E03.9 Hypothyroidism, unspecified; R73.9 Hyperglycemia, unspecified
CPT/HCPCS: 36415; 80053; 80061; 81001; 83036; 84443; 85025